=== PATIENT | male | born 1935 | race Caucasian/White ===

== ENCOUNTER 2018-05-03 10:27 | Inpatient (IN) ==
[2018-05-03] MEDS ORDERED: Morphine Inj 4 MG/ML Vial IV.PUSH ONE ×2 (10:32→11:28)
--- NOTE | 2018-05-03 10:40 | ED ---
HPI General Chief Complaint: Fall Stated Complaint: Medical Time Seen by Provider: 05/03/18 10:30 Source: patient and EMS Mode of arrival: EMS Limitations: no limitations History of Present Illness HPI Narrative: 82 Yo M with PMH of COPD, left knee replacement and revision presents to the ED for evaluation of left knee pain and swelling. Pain is rated 8/10, worsened by attempted weight bearing. No alleviating factors reported. Onset last night when the patient states "the leg gave out on me." He's not sure if he tripped. He denies dizziness. He states that he fell to the tile in the kitchen. He denies striking his head or LOC. He states that he has been unable to ambulate independently since the fall. He has used a walker and wheelchair for mobility. He takes aspirin daily, denies blood thinner use. He treated at home with Aleve last night with no improvement of symptoms. He states that he drank a little juice early this morning. Related Data Allergies Allergy/AdvReac Type Severity Reaction Status Date / Time tramadol Allergy Unknown RASH, Verified 05/03/18 10:28 ITCHINESS Review of Systems ROS: all other systems reviewed are negative [facility] Medical History Medical History COPD (chronic obstructive pulmonary disease) (Acute) Social History Social History Substance History: No History of Abuse Second Hand Smoke Exposure: No Smoking Status: Former smoker Tobacco Type: Cigarettes How Often Do You Have a Drink Containing Alcohol: 2 to 4 times a month Recent Travel in [facility] within the Last 8 Weeks: No Recent Out of Country Travel within the Last 8 Weeks: No Exam Narrative Exam Narrative: GENERAL: Well nourished, well developed white male in [facility]. SKIN: Focused skin assessment warm/dry. HEAD: Atraumatic. Normocephalic. EYES: Pupils equal and round. No scleral icterus. No injection or drainage. ENT: No nasal bleeding or discharge. Mucous membranes pink and moist. NECK: Trachea midline. No JVD. CARDIOVASCULAR: Regular rate and rhythm. No murmur appreciated. RESPIRATORY: No accessory muscle use. Clear to auscultation. Breath sounds equal bilaterally. GASTROINTESTINAL: Abdomen soft, non-tender, nondistended. Hepatic and splenic margins not palpable. MUSCULOSKELETAL: No obvious deformities. No clubbing. No cyanosis. No edema. FOCUSED LEFT LOWER EXTREMITY EXAM: 2+ DP pulse. The leg is held in external rotation. No pain with internal/external rotation. No TTP of the anterolateral hip. There is a large hematoma of the inner thigh. There is edema and ecchymosis of the knee. + patellar balloting. The patient is able to flex to ~ 35 degrees and extend to near 0 degrees. Neurovascularly intact distally. NEUROLOGICAL: Awake and alert. No obvious cranial nerve deficits. Motor grossly within normal limits. Normal speech. PSYCHIATRIC: Appropriate mood and affect; insight and judgment normal. Course Initial Documented Vital Signs Temperature 99.4 F 05/03/18 10:29 Pulse Rate 79 05/03/18 10:29 Respiratory Rate 18 05/03/18 10:29 Blood Pressure 132/95 H 05/03/18 10:29 Pulse Oximetry 100 05/03/18 10:29 Last Documented Vital Signs Temperature 99.4 F 05/03/18 10:29 Pulse Rate 79 05/03/18 10:29 Respiratory Rate 16 05/03/18 11:36 Blood Pressure 132/95 H 05/03/18 10:29 Pulse Oximetry 100 05/03/18 10:29 Medical Decision Making SUYAPA Attestation SUYAPA supervised visit: Yes Attestation: I, Dr. De La Torre, have reviewed the advance practice practitioner's documentation and am in agreement, met with the patient face to face, made the diagnosis, and the medical decision making was done by me. *My assessment and Findings: Patient is an 82-year-old male who presents with complaint of left leg pain after a fall yesterday. He did not hit his head nor lose consciousness. He is not entirely sure what caused the fall but believes he missed stepped. He has been trying to walk with his walker since the fall but has had severe difficulty secondary to pain in his left leg. Exam reveals large bruising and hematoma to the left thigh. He is neurovascularly intact. X -ray does show spiral femur fracture to the shaft in between his prostheses. He was placed in a knee immobilizer. Dr Persaud is his orthopedic surgeon and has been called. Dr Alfaro was on-call for the group and stated that the patient would need clearance for surgery (possibly today but likely tomorrow). I spoke with Dr Ybarra, hospitalist whom agreed to admission and was made aware of the need for clearance. MDM Narrative Medical decision making narrative: 82-year-old male with PMH of COPD presents the ED via EMS for evaluation of left leg pain after a fall night. Vitals reviewed. Exam suspicious for femur fracture. X-rays reveal intertrochanteric fracture around existing hardware and distal spiral fracture of the femur with total knee replacement noted. The patient request orthopedic consult by Dr. Persaud. Dr. De La Torre spoke with Dr. Mae who requests medical clearance, plans surgery likely tomorrow. We spoke with Dr. Ybarra who agrees to accept the patient to the medicine service. Please see orthopedic medicine notes for disposition. Medical Screen Exam Complete: Yes Emergency Medical Condition: Yes Differential Diagnosis Differential Diagnosis: fall versus contusion versus traumatic effusion versus hematoma versus muscle tear versus fracture versus other Lab Data Result diagrams: 05/03/18 10:45 05/03/18 10:45 Lab Results 05/03/18 05/03/18 05/03/18 Range/Units 10:45 10:45 11:17 WBC 16.0 H (4.0-11.0) th/mm3 RBC 2.92 L (4.50-5.90) mil/mm3 Hgb 10.8 L (13.0-17.0) gm/dL Hct 31.9 L (39.0-51.0) % MCV 109.0 H (80.0-100.0) fL MCH 36.9 H (27.0-34.0) pg MCHC 33.8 (32.0-36.0) % RDW 13.8 (11.6-17.2) % Plt Count 150 (150-450) th/mm3 MPV 9.5 (7.0-11.0) fL Neut % (Auto) 86.0 H (16.0-70.0) % Lymph % (Auto) 2.9 L (9.0-44.0) % [place] % (Auto) 10.6 H (0.0-8.0) % Eos % (Auto) 0.0 (0.0-4.0) % Baso % (Auto) 0.5 (0.0-2.0) % Neut # (Auto) 13.8 H (1.8-7.7) th/mm3 Lymph # (Auto) 0.5 L (1.0-4.8) th/mm3 [place] # (Auto) 1.7 H (0.0-0.9) th/mm3 Eos # (Auto) 0.0 (0.0-0.4) th/mm3 Baso # (Auto) 0.1 (0.0-0.2) th/mm3 WBC Differential . Differential Comment Auto diff final PT 10.0 (9.8-11.6) sec INR 1.0 Ratio APTT 21.5 L (23.4-31.7) sec Sodium 143 (136-145) meq/L Potassium 5.4 H (3.5-5.1) meq/L Chloride 110 H (98-107) meq/L Carbon Dioxide 20.2 L (21.0-32.0) meq/L Anion Gap 13 (5-15) meq/L BUN 38 H (7-18) mg/dL Creatinine 2.53 H (0.60-1.30) mg/dL Estimated GFR 25 L (>89) mL/min Random Glucose 134 H (74-106) mg/dL Calcium 7.4 L* (8.5-10.1) mg/dL Calcium Adj for Albumin 8.2 L (8.5-10.1) mg/dL Albumin 3.0 L (3.4-5.0) g/dL Imaging Data Radiologist's impression: Femur X-Ray 05/03/18 10:30 CONCLUSION: Intertrochanteric fracture about the prosthesis. Donal Murray MD FACR : Knee X-Ray 05/03/18 10:30 CONCLUSION: Fracture distal femur incompletely evaluated. Complete series of the femur suggested. Chest X-Ray 05/03/18 11:22 CONCLUSION: Moderate compensated cardiomegaly Discharge Plan Discharge Disposition Patient Disposition: ED Admit(ED Internal Use Only) Discharge Order Discharge Orders: ED Use Only Admit Order (Routine); Ordered 05/03/18 Ordered By: Jazzy De La Torre Physicians Team ED Provider: Jazzy De La Torre ED Midlevel Provider: Kirstin Fernandez Primary Care Provider: UNKNOWN, Attending Provider: Chayito Ybarra Other Providers: Nick Briggs Status ED Status: Admitted Patient
[2018-05-03 11:08] LABS: Baso # (Auto) 0.1 th/mm3 (0.0-0.2); Baso % (Auto) 0.5 % (0.0-2.0); Hematocrit 31.9 % (39.0-51.0); Hemoglobin 10.8 gm/dL (13.0-17.0); Lymph # (Auto) 0.5 th/mm3 (1.0-4.8); Lymph % (Auto) 2.9 % (9.0-44.0); Mean Corpuscular HGB Conc 33.8 % (32.0-36.0); Mean Corpuscular Hemoglobin 36.9 pg (27.0-34.0); Mean Platelet Volume 9.5 fL (7.0-11.0); Mono # (Auto) 1.7 th/mm3 (0.0-0.9); Mono % (Auto) 10.6 % (0.0-8.0); Neut # (Auto) 13.8 th/mm3 (1.8-7.7); Platelet Count 150 th/mm3 (150-450); Red Blood Count 2.92 mil/mm3 (4.50-5.90); Red Cell Distribution Width 13.8 % (11.6-17.2)
--- NOTE | 2018-05-03 11:24 | XR ---
EXAM DATE: 05/03/2018 11:15 AM EST AGE/SEX: 82 years / Male INDICATIONS: Left leg pain, fall. CLINICAL DATA: This is the patient's initial encounter. Patient reports that signs and symptoms have been present for 2 days and indicates a pain score of 7/10. MEDICAL/SURGICAL HISTORY: None. Total knee replacement, left. Bilateral hip replacements. COMPARISON: [facility], HIP LEFT AP ONLY WO AP PELVIS, 03/09/2015. . FINDINGS: The patient is status post a total hip arthroplasty. Prosthesis is well-seated. There is a fracture o f the lesser trochanter. This is associated with heterotopic bone. CONCLUSION: Intertrochanteric fracture about the prosthesis. Donal Murray MD FACR : Electronically signed by: Donal Murray MD 05/03/2018 11:23 AM EST
--- NOTE | 2018-05-03 11:25 | XR ---
EXAM DATE: 05/03/2018 11:17 AM EST AGE/SEX: 82 years / Male INDICATIONS: Left knee pain, fall. CLINICAL DATA: This is the patient's initial encounter. Patient reports that signs and symptoms have been present for 2 days and indicates a pain score of 7/10. MEDICAL/SURGICAL HISTORY: None. Total knee replacement, left. Bilateral hip replacements. COMPARISON: [facility] [place], FEMUR LEFT 2V, 05/03/2018. . FINDINGS: There is a fracture distal femur above the prosthesis incompletely evaluated on this exam. Femur film s suggested. CONCLUSION: Fracture distal femur incompletely evaluated. Complete series of the femur suggested. Electronically signed by: Donal Murray MD 05/03/2018 11:24 AM EST
[2018-05-03] MEDS ORDERED: Sod Chloride 0.9% Inj 1,000 ML IV.CONT SCH (11:30)
[2018-05-03 11:39] LABS: Calcium 7.4 mg/dL (8.5-10.1); Carbon Dioxide 20.2 meq/L (21.0-32.0); Potassium 5.4 meq/L (3.5-5.1)
[2018-05-03] MEDS ORDERED: Sod Chloride 0.9% Inj 1,000 ML IV.SIG ONE (11:53)
[2018-05-03 11:54] LABS: Calcium-Albumin Corrected 8.2 mg/dL (8.5-10.1)
--- NOTE | 2018-05-03 12:13 | XR ---
EXAM DATE: 05/03/2018 12:10 PM EST AGE/SEX: 82 years / Male INDICATIONS: Shortness of breath. CLINICAL DATA: This is the patient's initial encounter. Patient reports that signs and symptoms have been present for 1 day and indicates a pain score of 0/10. MEDICAL/SURGICAL HISTORY: Chronic obstructive pulmonary disease. . Total knee replacement, left . Bilateral hip replacements. COMPARISON: . FINDINGS: The heart is enlarged. Poor vascularity is normal. There is no other consolidation, pleural effusion or pneumothorax. Portable skeleton visualized is unremarkable. CONCLUSION: Moderate compensated cardiomegaly Electronically signed by: Donal Murray MD 05/03/2018 12:12 PM EST
[2018-05-03 12:23] LABS: Activated Partial Thrombo Time 21.5 sec (23.4-31.7)
[2018-05-03] MEDS ORDERED: Bisacodyl 10 MG Supp RECTAL PRN (12:23)
[2018-05-03] MEDS ORDERED: Morphine Inj 4 MG/ML Vial IV.PUSH PRN (12:23)
[2018-05-03] MEDS ORDERED: Naloxone Inj 0.4 MG/ML Vial IV.PUSH PRN (12:23)
[2018-05-03] MEDS ORDERED: Morphine Sulfate Inj 2 MG/ML Vial IV.PUSH PRN (12:23)
[2018-05-03] MEDS ORDERED: Acetaminophen 325 MG Tablet PO PRN ×2 (12:23)
--- NOTE | 2018-05-03 16:22 | P.HPIM ---
History of Present Illness Primary Care Physician: UNKNOWN Chief Complaint: Left leg pain after a fall History of Present Illness: 82-year-old white male with a history of COPD, sleep apnea presents to the emergency room with left upper leg pain since he tripped on tile yesterday in the kitchen despite taking [id number] ibuprofen. Due to the persistent pain and difficulty ambulating he came to the emergency room for evaluation. He denies loss of consciousness after the fall. Of note patient has a history of bilateral hip replacement with left hip arthroplasty revision about a year ago with Dr. Nick Briggs. He also has a right knee replacement. He is currently ambulating independently without assistance of a walker at home. He is not aware if he has a history of chronic kidney disease but reports that he had left nephrectomy done in the past due to renal cancer. He is currently not complain any chest pain or shortness of breath. Inpatient Certification Inpatient Certification: I certify that the inpatient services were ordered in accordance with Medicare regulations governing the order. This includes certification that hospital inpatient services are reasonable and necessary and in the case of services not specified as inpatient-only under 42 CFR 419.22(n), that they are appropriately provided as inpatient services in accordance to with the 2-midnight benchmark under 43 CFR 412.3(e) Estimated Total Length of Stay (Days): 4 Plans for Post Hospital Care: Not yet determined Review of Systems Constitutional: Reports as per HPI, Denies chills, Denies fatigue, Denies fever( s), Denies frequent falls and Denies headache(s) Eyes: Denies blurry vision, Denies change in vision and Denies eye pain Ears, Nose, Mouth, and Throat: Denies abnormal hearing, Denies headache(s), Denies mouth pain, Denies nasal congestion, Denies neck pain and Denies sore throat Cardiovascular: Denies chest pain, Denies pedal edema, Denies palpitations and Denies dyspnea Respiratory: Denies cough and Denies dyspnea Gastrointestinal: Denies abdominal pain, Denies constipation, Denies loose stools, Denies nausea and Denies vomiting Musculoskeletal: Denies back pain and Denies arthralgias Comments: Left upper leg pain as described in HPI Skin/Breast: Denies new lesions and Denies rash Neurologic: Denies abnormal hearing, Denies headache(s), Denies focal weakness, Denies memory loss and Denies numbness Psychiatric: Denies anxiety, Denies depression and Denies memory loss Endocrine: Denies cold intolerance, Denies heat intolerance and Denies palpitations Hematologic/Lymphatic: Denies easy bleeding and Denies easy bruising PMFSH Social History Social History Substance History: No History of Abuse Second Hand Smoke Exposure: No Smoking Status: Former smoker Tobacco Type: Cigarettes How Often Do You Have a Drink Containing Alcohol: 2 to 4 times a month Recent Travel in [facility] within the Last 8 Weeks: No Recent Out of Country Travel within the Last 8 Weeks: No Immunization History Tetanus Immunization: <5 Years Medications and Allergies Allergies Allergy/AdvReac Type Severity Reaction Status Date / Time tramadol Allergy Unknown RASH, Verified 05/03/18 10:28 ITCHINESS Home Medications Medication Instructions Recorded Confirmed Type albuterol sulfate 2.5 mg INHALATION Q20M PRN 05/03/18 05/03/18 History albuterol sulfate [Ventolin HFA] 05/03/18 History allopurinol 100 mg PO DAILY PRN 05/03/18 05/03/18 History aspirin [Aspir-81] 05/03/18 History duloxetine 60 mg PO DAILY 05/03/18 05/03/18 History finasteride 5 mg PO DAILY 05/03/18 05/03/18 History fluticasone-salmeterol [Advair 1 inh INHALATION BID 05/03/18 05/03/18 History Diskus] primidone 50 mg PO DAILY 05/03/18 05/03/18 History trazodone 50 mg PO HS PRN 05/03/18 05/03/18 History Active Medications: Active Medications Acetaminophen (Tylenol) 650 mg PO Q4H PRN PRN Reason: Temp > 100.4 Acetaminophen (Tylenol) 650 mg PO Q6H PRN PRN Reason: PAIN SCALE 1 TO 2 Hydrocodone Bitart/Acetaminophen ([place] 5/325) 1 tab PO Q4H PRN PRN Reason: PAIN SCALE 3 TO 5 Hydrocodone Bitart/Acetaminophen ([place] 7.5/325) 1 tab PO Q4H PRN PRN Reason: PAIN SCALE 6 TO 10 Al Hydroxide/Mg Hydroxide (Milk Of Magnesia Liq) 30 ml PO Q12H PRN PRN Reason: Mild Constipation Bisacodyl (Dulcolax Supp) 10 mg RECTAL DAILY PRN PRN Reason: SEVERE CONSITIPATION Sodium Chloride (Ns Inj) 1,000 mls @ 75 mls/hr IV.CONT .[id number] KAE Lactulose (Lactulose Liq) 30 ml PO DAILY PRN PRN Reason: SEVERE CONSITIPATION Morphine Sulfate (Morphine Inj) 2 mg IV.PUSH Q3H PRN PRN Reason: PAIN 3-5; IF UABLE TO TAKE PO Morphine Sulfate (Morphine Inj) 4 mg IV.PUSH Q3H PRN PRN Reason: PAIN 6-10;IF UNABLE TO TAKE PO Naloxone HCl (Narcan Inj) 0.4 mg IV.PUSH UNSCH PRN PRN Reason: SEE LABEL COMMENTS Ondansetron HCl (Zofran Inj) 4 mg IV.PUSH Q6H PRN PRN Reason: NAUSEA OR VOMITING Senna/Docusate Sodium (Griselda-Colace) 1 tab PO BID [facility] Sennosides (Senokot) 17.2 mg PO Q12H PRN PRN Reason: Moderate Constipation Sodium Chloride (Ns Flush) 2 ml IV.FLUSH UNSCH PRN PRN Reason: FLUSH AFTER USING IV ACCESS Sodium Chloride (Ns Flush) 2 ml IV.FLUSH BID [facility] Physical Exam Vital signs: Last Vital Signs Temp 97.5 F L 05/03/18 16:00 Pulse 77 05/03/18 16:00 Resp 18 05/03/18 16:00 BP 112/55 L 05/03/18 16:00 Pulse Ox 97 05/03/18 16:00 Intake & Output 05/01/18 05/02/18 05/03/18 05/04/18 06:59 06:59 06:59 06:59 Weight 97.522 kg Narrative: GENERAL: Well-nourished well-developed white male in no acute distress SKIN: Warm and dry. HEAD: Atraumatic. Normocephalic. EYES: Pupils equal and round. No scleral icterus. No injection or drainage. ENT: No nasal bleeding or discharge. Mucous membranes pink and moist. NECK: Trachea midline. No JVD. CARDIOVASCULAR: Regular rate and rhythm. RESPIRATORY: No accessory muscle use. Diminished breath sounds bilaterally GASTROINTESTINAL: Abdomen soft, non-tender, nondistended. Hepatic and splenic margins not palpable. Midline surgical scar, normoactive bowel sounds MUSCULOSKELETAL: Left lower extremity with external rotation and abduction, knee immobilizer in place NEUROLOGICAL: Awake and alert to person place time. No obvious cranial nerve deficits. Motor grossly within normal limits. Five out of 5 muscle strength in the bilateral arms and right lower legs. Normal speech. PSYCHIATRIC: Appropriate mood and affect; insight and judgment normal. Results Labs CBC & Chem 7: 05/07/18 04:23 05/07/18 04:26 Imaging Impressions Femur X-Ray 05/03/18 10:30 CONCLUSION: Intertrochanteric fracture about the prosthesis. Donal Murray MD FACR : Knee X-Ray 05/03/18 10:30 CONCLUSION: Fracture distal femur incompletely evaluated. Complete series of the femur suggested. Chest X-Ray 05/03/18 11:22 CONCLUSION: Moderate compensated cardiomegaly Caprini VTE Risk Assessment Caprini VTE Risk Assessment: Moderate/High Risk (score >= 2) Caprini Risk Assessment Model: Point Value = 1 Point Value = 2 Point Value = 3 Point Value = 5 Age 41-60 Minor surgery BMI > 25 kg/m2 Swollen legs Varicose veins or History of unexplained or recurrent spontaneous Oral contraceptives or hormone replacement Sepsis (< 1 month) Serious lung disease, including pneumonia (< 1 month) Abnormal pulmonary function Acute myocardial infarction Congestive heart failure (< 1 month) History of inflammatory bowel disease Medical patient at bed rest Age 61-74 Arthroscopic surgery Major open surgery (> 45 min) Laparoscopic surgery (> 45 min) Malignancy Confined to bed (> 72 hours) Immobilizing plaster cast Central venous access Age >= 75 History of VTE Family history of VTE Factor V Leiden Prothrombin [id number] Lupus anticoagulant Anticardiolipin antibodies Elevated serum homocysteine Heparin-induced thrombocytopenia Other congenital or acquired thrombophilia Stroke (< 1 month) Elective arthroplasty Hip, pelvis, or leg fracture Acute spinal cord injury (< 1 month) Prophylaxis Regimen: Total Risk Factor Score Risk Level Prophylaxis Regimen 0-1 Low Early ambulation 2 Moderate Order ONE of the following: *Sequential Compression Device (SCD) *Heparin 5000 units SQ BID 3-4 Higher Order ONE of the following medications: *Heparin 5000 units SQ TID *Enoxaparin/Lovenox 40 mg SQ daily (WT < 150 kg, CrCl > 30 mL/min) *Enoxaparin/Lovenox 30 mg SQ daily (WT < 150 kg, CrCl > 10-29 mL/min) *Enoxaparin/Lovenox 30 mg SQ BID (WT < 150 kg, CrCl > 30 mL/min) AND/OR *Sequential Compression Device (SCD) 5 or more Highest Order ONE of the following medications: *Heparin 5000 units SQ TID (Preferred with Epidurals) *Enoxaparin/Lovenox 40 mg SQ daily (WT < 150 kg, CrCl > 30 mL/min) *Enoxaparin/Lovenox 30 mg SQ daily (WT < 150 kg, CrCl > 10-29 mL/min) *Enoxaparin/Lovenox 30 mg SQ BID (WT < 150 kg, CrCl > 30 mL/min) AND *Sequential Compression Device (SCD) Assessment and Plan Plan 83-year-old white male with a history of COPD, sleep apnea presents with left leg pain after he sustained a fall yesterday Left hip intertrochanteric fracture with distal femoral fracture above the prosthesis -continue pain control, consult orthopedic surgery for evaluation for surgical intervention. History of COPDcurrently not acute exacerbation continue with inhaler, DuoNeb as needed for any shortness of breath History of sleep apneacontinue with CPAP Acute kidney injury superimposed on likely chronic kidney disease stage III as patient had GFR 54 in February 2015 -this is likely attributed to the fall, IV fluid hydration and monitor. Avoid nephrotoxins. Hypokalemiano potassium supplements and monitor closely, if continues to be elevated will give Kayexalate. History of essential tremor continue with home primidone Leukocytosis likely due to stress reaction, check screening urinalysis Anemia likely due to chronic kidney disease, monitor hemoglobin postoperatively DVT prophylaxisSCD to RLE, hold anticoagulation for pending surgery
[2018-05-03] MEDS ORDERED: traZODone 50 MG Tablet PO PRN (16:28)
[2018-05-03] MEDS: Sod Chloride 0.9% Inj 1,000 ML IV.CONT SCH (18:41)
[2018-05-03] MEDS: Senna/Docusate Sodium 8.6/50 MG Tablet PO SCH (19:59)
--- NOTE | 2018-05-03 20:01 | P.CONOP ---
[facility] Orthopedics Consult Note - [facility] Consult date: 05/03/18 Consult reason: fracture Chief complaint: Femur FX Narrative: Cath patient is a 82-year-old male who is previously undergone revision left total hip arthroplasty and revision left total knee arthroplasty. He sustained a fall today. He does not know exactly what happened. He was brought to [facility]. He was found to have a highly comminuted supracondylar distal femoral shaft fracture above his total knee and below his total hip. He was admitted to the medical service with consultation placed with the undersigned. He specifically denies other injury. Review of Systems Patient denies problems head ears eyes nose throat heart lungs gastrointestinal tract liver kidney psychiatric and genitourinary system. [facility] - History History Provided By: Patient - Medical History Medical History: Medical History (Last Reviewed 05/03/18 @ 19:58 by Feroz Alfaro MD) COPD (chronic obstructive pulmonary disease) Essential tremor Gout Sleep apnea Renal cancer Renal cancer - Surgical History Surgical History: Surgical History (Last Reviewed 05/03/18 @ 19:58 by Feroz Alfaro MD) History of bilateral hip replacements History of nephrectomy, unilateral History of right knee joint replacement - Family History Family History: Family History (Last Reviewed 05/03/18 @ 19:58 by Feroz Alfaro MD) Father Bone cancer - Tobacco History Second Hand Smoke Exposure: No Tobacco Use In Past 30 Days: No Smoking Status: Former smoker Tobacco Type: Cigarettes - Alcohol History How Often Do You Have a Drink Containing Alcohol: 2 to 4 times a month - Substance Use History Substance History: No History of Abuse - Travel History Recent Travel in the [place] Within the Last 8 Weeks: No Recent Travel Out of the Country Within the Last 8 Weeks: No - Immunization History Tetanus Immunization: <5 Years Hx Influenza Vaccine This Season: Yes Medications and Allergies Active Medications: Active Medications Acetaminophen (Tylenol) 650 mg PO Q4H PRN PRN Reason: Temp > 100.4 Acetaminophen (Tylenol) 650 mg PO Q6H PRN PRN Reason: PAIN SCALE 1 TO 2 Hydrocodone Bitart/Acetaminophen ([place] 5/325) 1 tab PO Q4H PRN PRN Reason: PAIN SCALE 3 TO 5 Hydrocodone Bitart/Acetaminophen ([place] 7.5/325) 1 tab PO Q4H PRN PRN Reason: PAIN SCALE 6 TO 10 Al Hydroxide/Mg Hydroxide (Milk Of Magnesia Liq) 30 ml PO Q12H PRN PRN Reason: Mild Constipation Albuterol (Duoneb Neb (Prn)) 1 ampul NEB Q2HR NEB PRN PRN Reason: SHORTNESS OF BREATH Bisacodyl (Dulcolax Supp) 10 mg RECTAL DAILY PRN PRN Reason: SEVERE CONSITIPATION Budesonide/Formoterol Fumarate (Symbicort 160/4.5 Mcg Inh) 2 puff INH BID [facility] Duloxetine HCl (Cymbalta) 60 mg PO DAILY [facility] Finasteride (Proscar) 5 mg PO DAILY [facility] Sodium Chloride (Ns Inj) 1,000 mls @ 75 mls/hr IV.CONT .[id number] [facility] Last Admin: 05/03/18 18:41 Dose: 75 mls/hr Lactulose (Lactulose Liq) 30 ml PO DAILY PRN PRN Reason: SEVERE CONSITIPATION Morphine Sulfate (Morphine Inj) 2 mg IV.PUSH Q3H PRN PRN Reason: PAIN 3-5; IF UABLE TO TAKE PO Morphine Sulfate (Morphine Inj) 4 mg IV.PUSH Q3H PRN PRN Reason: PAIN 6-10;IF UNABLE TO TAKE PO Naloxone HCl (Narcan Inj) 0.4 mg IV.PUSH UNSCH PRN PRN Reason: SEE LABEL COMMENTS Ondansetron HCl (Zofran Inj) 4 mg IV.PUSH Q6H PRN PRN Reason: NAUSEA OR VOMITING Primidone (Mysoline) 50 mg PO DAILY [facility] Senna/Docusate Sodium (Griselda-Colace) 1 tab PO BID [facility] Sennosides (Senokot) 17.2 mg PO Q12H PRN PRN Reason: Moderate Constipation Sodium Chloride (Ns Flush) 2 ml IV.FLUSH UNSCH PRN PRN Reason: FLUSH AFTER USING IV ACCESS Sodium Chloride (Ns Flush) 2 ml IV.FLUSH BID [facility] Trazodone HCl (Desyrel) 50 mg PO HS PRN PRN Reason: Insomnia Allergies Allergy/AdvReac Type Severity Reaction Status Date / Time tramadol Allergy Unknown RASH, Verified 05/03/18 10:28 ITCHINESS Home Medications Medication Instructions Recorded Confirmed Type albuterol sulfate 2.5 mg INHALATION Q20M PRN 05/03/18 05/03/18 History albuterol sulfate [Ventolin HFA] 05/03/18 History allopurinol 100 mg PO DAILY PRN 05/03/18 05/03/18 History aspirin [Aspir-81] 05/03/18 History duloxetine 60 mg PO DAILY 05/03/18 05/03/18 History finasteride 5 mg PO DAILY 05/03/18 05/03/18 History fluticasone-salmeterol [Advair 1 inh INHALATION BID 05/03/18 05/03/18 History Diskus] primidone 50 mg PO DAILY 05/03/18 05/03/18 History trazodone 50 mg PO HS PRN 05/03/18 05/03/18 History Exam Vital signs: Vital Signs 05/03/18 10:29 05/03/18 11:36 05/03/18 16:00 Temperature 99.4 F 97.5 F L Pulse Rate 79 77 Respiratory Rate 18 16 18 Blood Pressure 132/95 H 112/55 L Pulse Oximetry 100 97 Intake & Output 05/03/18 05/03/18 05/04/18 06:59 18:59 06:59 Intake Total 0 / 0 Balance 0 / 0 Weight 97.5 kg Intake: Oral 0 / 0 Other: # Voids 0 Date of Last Bowel Movement 05/02/18 # Bowel Movements 0 Weight On Admission 97.5 kg - Constitutional mild distress - Routine HEENT Exam Head: Present: normocephalic, atraumatic Eye: Present: EOMI, PERRL (Right lower extremity examination benignLeft lower extremity shows marked swelling of the left thigh. He has tenderness to palpation. Motion of the hips and knees not performed. Calves are soft. Distal pulses are 2+. Distal versus neurologic examination intact. Skin is intact.) Results - Labs Result Diagrams: 05/03/18 10:45 05/03/18 10:45 Labs: Laboratory Results - last 24 hr 05/03/18 05/03/18 05/03/18 10:45 10:45 11:17 WBC 16.0 H RBC 2.92 L Hgb 10.8 L Hct 31.9 L MCV 109.0 H MCH 36.9 H MCHC 33.8 RDW 13.8 Plt Count 150 MPV 9.5 Neut % (Auto) 86.0 H Lymph % (Auto) 2.9 L [place] % (Auto) 10.6 H Eos % (Auto) 0.0 Baso % (Auto) 0.5 Neut # (Auto) 13.8 H Lymph # (Auto) 0.5 L [place] # (Auto) 1.7 H Eos # (Auto) 0.0 Baso # (Auto) 0.1 WBC Differential . Differential Comment Auto diff final PT 10.0 INR 1.0 APTT 21.5 L Sodium 143 Potassium 5.4 H Chloride 110 H Carbon Dioxide 20.2 L Anion Gap 13 BUN 38 H Creatinine 2.53 H Estimated GFR 25 L Random Glucose 134 H Calcium 7.4 L* Calcium Adj for Albumin 8.2 L Albumin 3.0 L - Diagnostic results Imaging: Impressions Femur X-Ray 05/03/18 10:30 CONCLUSION: Intertrochanteric fracture about the prosthesis. Donal Murray MD FACR : Knee X-Ray 05/03/18 10:30 CONCLUSION: Fracture distal femur incompletely evaluated. Complete series of the femur suggested. Chest X-Ray 05/03/18 11:22 CONCLUSION: Moderate compensated cardiomegaly Assessment and Plan - Problem List (1) Fracture of femoral shaft, left, closed Code(s): S72.302A - Unspecified fracture of shaft of left femur, initial encounter for closed fracture Status: Acute Qualifiers: Encounter type: initial encounter Fracture morphology: oblique Fracture alignment: displaced Qualified Code(s): S72.332A - Displaced oblique fracture of shaft of left femur, initial encounter for closed fracture - Assessment and Plan His condition was discussed and the options of treatment were discussed. The recommendation is open reduction internal fixation. Surgical technique described. The inherent risks of surgery including the risk of infection, nerve damage, blood vessel damage, anesthetic complication, medical complication, and unforeseen possible complications were all discussed all of his questions were answered he was present with surgery detailed informed consent was obtained. A mid-level provider my office nurse practitioner ALE may see this patient on follow-up basis and continue to implement the plan of care.
[2018-05-04] MEDS: Budesonide-Formoterol 160/4.5 MCG 6 GM Inhaler INH SCH ×3 (04:00→21:36)
[2018-05-04] MEDS ORDERED: Chlorhexidine Gluconate 2% 1 Pack (2 Cloths) TOPICAL ONE (04:15)
[2018-05-04] MEDS ORDERED: Sodium Chlor 0.9% Inj 500 ML IV.CONT ONE (04:15)
[2018-05-04 06:10] LABS: Baso # (Auto) 0.1 th/mm3 (0.0-0.2); Baso % (Auto) 0.7 % (0.0-2.0); Eos # (Auto) 0.1 th/mm3 (0.0-0.4); Eos % (Auto) 1.6 % (0.0-4.0); Hematocrit 23.5 % (39.0-51.0); Hemoglobin 8.1 gm/dL (13.0-17.0); Lymph % (Auto) 13.1 % (9.0-44.0); Mean Corpuscular HGB Conc 34.5 % (32.0-36.0); Mean Corpuscular Hemoglobin 37.7 pg (27.0-34.0); Mean Corpuscular Volume 109.3 fL (80.0-100.0); Mean Platelet Volume 9.4 fL (7.0-11.0); Mono # (Auto) 1.3 th/mm3 (0.0-0.9); Mono % (Auto) 16.6 % (0.0-8.0); Neut # (Auto) 5.4 th/mm3 (1.8-7.7); Platelet Count 97 th/mm3 (150-450); Red Blood Count 2.15 mil/mm3 (4.50-5.90); White Blood Count 7.9 th/mm3 (4.0-11.0)
[2018-05-04 06:29] LABS: Calcium 7.6 mg/dL (8.5-10.1); Carbon Dioxide 23.2 meq/L (21.0-32.0); Potassium 5.1 meq/L (3.5-5.1)
[2018-05-04] MEDS ORDERED: ceFAZolin 1 GM Premix Inj 2 GM/100 ML PIGGYBACK IV.SIG ONE (07:48)
[2018-05-04] MEDS ORDERED: Heparin 10,000 UNITS/10 ML Vial (for IV use) ONE (08:51)
[2018-05-04 09:56] LABS: Dimorphic RBC Present; Platelet Morphology Normal (Normal)
[2018-05-04] MEDS: Duloxetine 60 MG DR Capsule PO SCH (10:04)
[2018-05-04] MEDS: Primidone 50 MG Tablet PO SCH (10:04)
[2018-05-04] MEDS: Finasteride 5 MG Tablet PO SCH (10:04)
[2018-05-04] MEDS: Senna/Docusate Sodium 8.6/50 MG Tablet PO SCH ×2 (10:04→21:36)
[2018-05-04] MEDS ORDERED: Post-op Orders (for Pharmacy) OTHER STA ×3 (10:53→10:59)
--- NOTE | 2018-05-04 11:20 | P.OP ---
- Preoperative Diagnosis (1) Fracture of femoral shaft, left, closed - Postoperative Diagnosis (1) Fracture of femoral shaft, left, closed Date of procedure: 05/04/18 Procedure: Left femur open reduction and internal fixation of supracondylar and shaft fracture above total knee replacement and below total hip replacement Implants: Synthes Anesthesia: GETA Surgeon: Feroz Alfaro MD Water Project Manager: Wilson Connors Estimated blood loss (mL): 1,000 Operation and Findings: The patient was brought to the operating room placed under general anesthesia. The left lower extremity is prepped and draped in usual sterile fashion with the patient set up on a Steele table. IV antibiotics were given. Timeout was completed. A long lateral incision and alignment with the iliotibial band was made meticulous hemostasis of the skin and subcutaneous tissue and the fascia was split. The vastus lateralis lateralis was elevated off of the fascia and the bone exposed proximally to the level of the total hip replacement. A clip suture winder hand was used proximally for perforating vessels. The scar tissue about the lateral aspect of the knee was resected. Fracture fragments were aligned a long Synthes specially locking lateral plate was chosen. This plate had a curvature in it that curved as the femur curved and was long enough so that it went to the level of the total hip. We used fluoroscopy to assess the reduction in the alignment and then proceeded to further reduce this with the use of multiple cables. The cables were provisionally tensioned and the bone aligned. We had our starter guidepin at the level of the knee and was parallel to the joint surface to allow for appropriate varus valgus alignment. We then proceeded to tension all of the cables and and then proceeded to place our distal cannulated locking screws and then midshaft screws. Final x-rays AP and lateral of the entire construct was obtained. The overall alignment looks good the varus valgus alignment look good and the lateral view showed good alignment of the knee prosthesis. At this point we irrigated out with copious amounts of irrigation. We proceeded to close with absorbable sutures and then lucina on the skin. Xeroform was applied. Sterile dressing applied. The patient was awoken and returned to recovery room in stable condition. The first coat operator is an advanced registered nurse practitioner. His skill set was medically necessary for the performance of the operation.
[2018-05-04] MEDS: Sod Chloride 0.9% Inj 1,000 ML IV.CONT SCH (12:00)
[2018-05-04] MEDS ORDERED: fentaNYL Citrate Inj 100 MCG/2 ML Ampul ONE (12:08)
[2018-05-04 12:09] LABS: Baso # (Auto) 0.1 th/mm3 (0.0-0.2); Baso % (Auto) 0.5 % (0.0-2.0); Eos # (Auto) 0.1 th/mm3 (0.0-0.4); Eos % (Auto) 1.2 % (0.0-4.0); Lymph # (Auto) 0.8 th/mm3 (1.0-4.8); Lymph % (Auto) 6.5 % (9.0-44.0); Mean Corpuscular Hemoglobin 37.1 pg (27.0-34.0); Mean Corpuscular Volume 112.3 fL (80.0-100.0); Mean Platelet Volume 9.4 fL (7.0-11.0); Mono # (Auto) 1.5 th/mm3 (0.0-0.9); Mono % (Auto) 12.3 % (0.0-8.0); Neut # (Auto) 9.9 th/mm3 (1.8-7.7); Neut % (Auto) 79.5 % (16.0-70.0); Platelet Count 120 th/mm3 (150-450); Red Blood Count 1.57 mil/mm3 (4.50-5.90); White Blood Count 12.4 th/mm3 (4.0-11.0)
--- NOTE | 2018-05-04 12:18 | XR ---
EXAM DATE: 05/04/2018 12:14 PM EST AGE/SEX: 82 years / Male INDICATIONS: Evaluate central line placement. CLINICAL DATA: This is the patient's initial encounter. Patient reports that signs and symptoms have been present for 1 day and indicates a pain score of 0/10. MEDICAL/SURGICAL HISTORY: Chronic obstructive pulmonary disease. None. COMPARISON: C, CHEST 1V SINGLE AP, 05/03/2018. . FINDINGS: 2 rotated and underinflated portable AP views of the chest demonstrate a normal-sized cardiac silhoue tte with calcification of the aorta. Left subclavian central line is present with distal tip overlyin g the superior aspect of the SVC. No pneumothorax is identified. There is mild bibasilar opacity. No pleural effusion is present. CONCLUSION: 1. Left subclavian central line distal tip likely in the superior aspect of the SVC. No pneumothorax is visualized. 2. Underinflated examination with mild bibasilar opacity most likely representing subsegmental atele ctasis. Electronically signed by: Saleem Aguilar MD 05/04/2018 12:17 PM EST
[2018-05-04 12:20] LABS: Hematocrit 17.6 % (39.0-51.0); Hemoglobin 5.8 gm/dL (13.0-17.0)
--- NOTE | 2018-05-04 13:29 | XR ---
EXAM DATE: 05/04/2018 1:13 PM EST AGE/SEX: 82 years / Male INDICATIONS: Left femoral plate and wires. CLINICAL DATA: This is the patient's initial encounter. Patient reports that signs and symptoms have been present for 1 day and indicates a pain score of Nonresponsive. MEDICAL/SURGICAL HISTORY: Chronic obstructive pulmonary disease. . Total knee replacement, left . Bilateral hip replacements. COMPARISON: [facility] [place], KNEE LIMITED LEFT 2V, 05/03/2018. . FINDINGS: 7 spot fluoroscopic images obtained in the operating room during a procedure demonstrates a lateral m id and distal femoral sideplate with multiple interlocking screws and cerclage wires. Partially visua lized femoral stem component is visualized and there is total knee arthroplasty hardware present. The re is overall improved alignment. CONCLUSION: Improved alignment following left femur ORIF. Electronically signed by: Saleem Aguilar MD 05/04/2018 1:28 PM EST
--- NOTE | 2018-05-04 13:49 | P.PNIM ---
Subjective Interval history: Follow up left hip intertrochanteric fracture with distal femoral fracture above prosthesis status post ORIF, symptomatic anemia, hypokalemia, IVETT Patient seen post-operatively. He complains of feeling very weak. Moderate left hip pain and nausea. No shortness of breath or chest discomfort. Physical Exam Vital signs: Last Vital Signs Temp 97.5 F L 05/04/18 12:30 Pulse 79 05/04/18 12:30 Resp 15 05/04/18 12:30 BP 119/56 L 05/04/18 12:30 Pulse Ox 100 05/04/18 12:30 Intake & Output 05/02/18 05/03/18 05/04/18 05/05/18 06:59 06:59 06:59 06:59 Intake Total 100 / 100 4300 / 4300 Output Total 0 / 0 1000 / 1000 Balance 100 / 100 3300 / 3300 Weight 96.1 kg Narrative: GENERAL: Well-nourished well-developed white male in no acute distress SKIN: Warm and dry. HEAD: Atraumatic. Normocephalic. EYES: Pupils equal and round. No scleral icterus. No injection or drainage. ENT: No nasal bleeding or discharge. Mucous membranes pink and moist. NECK: Trachea midline. No JVD. CARDIOVASCULAR: Regular rate and rhythm. RESPIRATORY: No accessory muscle use. Diminished breath sounds bilaterally GASTROINTESTINAL: Abdomen soft, non-tender, nondistended. Hepatic and splenic margins not palpable. Midline surgical scar, normoactive bowel sounds MUSCULOSKELETAL: Left hip dressing clean, dry and intact NEUROLOGICAL: Awake and alert to person place time. No obvious cranial nerve deficits. Motor grossly within normal limits. Five out of 5 muscle strength in the bilateral arms and right lower legs. Normal speech. PSYCHIATRIC: Appropriate mood and affect; insight and judgment normal. Results Labs CBC & Chem 7: 05/04/18 11:31 05/04/18 04:53 Imaging Imaging: Impressions Chest X-Ray 05/04/18 00:00 CONCLUSION: 1. Left subclavian central line distal tip likely in the superior aspect of the SVC. No pneumothorax is visualized. 2. Underinflated examination with mild bibasilar opacity most likely representing subsegmental atelectasis. Femur X-Ray 05/04/18 00:00 CONCLUSION: Improved alignment following left femur ORIF. Assessment and Plan (1) Fracture of femoral shaft, left, closed: Code(s): S72.302A - Unspecified fracture of shaft of left femur, initial encounter for closed fracture Status: Acute Plan 83-year-old white male with a history of COPD, sleep apnea presents with left leg pain after he sustained a fall yesterday Left hip intertrochanteric fracture with distal femoral fracture above prosthesis -Ortho consulted -s/p ORIF 05/04/18 -continue pain control -PT eval/treat Symptomatic anemia, acute blood loss -multifactorial, worse 2/2 acute blood loss post surgery -H/H 5.8/17.6 -transfuse PRBC's -repeat H/H post completion of transfusion Acute kidney injury superimposed on likely chronic kidney disease stage III as patient had GFR 54 in February 2015 - slightly worse today -likely attributed to the fall -continue IV fluid hydration and monitor -avoid nephrotoxins Leukocytosis, likely reactive 2/2 stress -repeat CBC in am History of COPD - chronic and stable -no acute exacerbation -continue with inhaler, DuoNeb as needed for any shortness of breath History of sleep apneacontinue with CPAP Hypokalemia - improved and WNL no potassium supplements and monitor closely History of essential tremor continue with home primidone MDM: self Code: Full GI ppx: PO intake DVT ppx: Lovenox SQ 05/05/18 Discussed Condition With: RN, patient Discharge Planning: likely SNF, pending PT evaluation and treatment Progress Note: Quality VTE Deep Vein Thrombosis/Pulmonary Embolism Present on Admission: No _ (1) Fracture of femoral shaft, left, closed Qualifiers: Encounter type: initial encounter Fracture alignment: displaced Fracture healing: Fracture morphology: oblique Qualified Code(s): S72.332A - Displaced oblique fracture of shaft of left femur, initial encounter for closed fracture
--- NOTE | 2018-05-04 20:47 | ECG ---
Date Performed: 05/04/2018 Time Performed: 05:34:02 PTAGE: 82 years EKG: Normal Sinus rhythm Borderline ECG NO PREVIOUS TRACING DOCTOR: Eduardo Jarrell Interpretating Date/Time 05/04/2018 20:45:31
[2018-05-05 00:41] LABS: Hematocrit 23.5 % (39.0-51.0); Hemoglobin 8.2 gm/dL (13.0-17.0)
[2018-05-05 06:25] LABS: Hematocrit 23.8 % (39.0-51.0); Hemoglobin 8.2 gm/dL (13.0-17.0)
[2018-05-05 06:32] LABS: Calcium 6.8 mg/dL (8.5-10.1); Potassium 5.4 meq/L (3.5-5.1)
[2018-05-05 06:44] LABS: Albumin 2.4 g/dL (3.4-5.0); Calcium-Albumin Corrected 8.1 mg/dL (8.5-10.1)
[2018-05-05] MEDS: Sod Chloride 0.9% Inj 1,000 ML IV.CONT SCH ×3 (07:47→19:00)
[2018-05-05] MEDS: Primidone 50 MG Tablet PO SCH (08:08)
[2018-05-05] MEDS: Duloxetine 60 MG DR Capsule PO SCH (08:08)
[2018-05-05] MEDS: Finasteride 5 MG Tablet PO SCH (08:09)
[2018-05-05] MEDS: Senna/Docusate Sodium 8.6/50 MG Tablet PO SCH ×2 (08:09→20:46)
[2018-05-05] MEDS: Budesonide-Formoterol 160/4.5 MCG 6 GM Inhaler INH SCH ×2 (08:10→20:46)
[2018-05-05] MEDS ORDERED: Sodium Polystyrene Sulfonate/Sorbitol Liq 15 GM/60 ML UDC PO ONE (08:12)
[2018-05-05] MEDS ORDERED: Enoxaparin Inj 40 MG/0.4 ML Syringe SQ SCH (11:00)
[2018-05-05] MEDS ORDERED: Benzocaine/Menthol 15 MG/3.6 MG SF Lozenge BUCCAL PRN (12:08)
--- NOTE | 2018-05-05 12:14 | P.PNIM ---
Subjective Interval history: Follow up left hip intertrochanteric fracture with distal femoral fracture above prosthesis status post ORIF, symptomatic anemia, hypokalemia, IVETT Patient seen and examined while resting in bed. His brother is at the bedside. Patient reports improved energy. No dizziness or lightheadedness. He states he sat up in a chair earlier and tolerated this well. No chest discomfort, shortness of breath, cough, fever or chills. Patient states he would like to speak to regarding rehab options. Physical Exam Vital signs: Last Vital Signs Temp 97.9 F 05/05/18 08:00 Pulse 81 05/05/18 08:00 Resp 18 05/05/18 08:00 BP 124/61 05/05/18 08:00 Pulse Ox 96 05/05/18 12:05 Intake & Output 05/03/18 05/04/18 05/05/18 05/06/18 06:59 06:59 06:59 06:59 Intake Total 100 / 100 5940 / 5940 Output Total 0 / 0 1200 / 1200 Balance 100 / 100 4740 / 4740 Weight 96.1 kg 102.5 kg Narrative: GENERAL: Well-nourished well-developed white male in no acute distress SKIN: Warm and dry. HEAD: Atraumatic. Normocephalic. EYES: Pupils equal and round. No scleral icterus. No injection or drainage. ENT: No nasal bleeding or discharge. Mucous membranes pink and moist. NECK: Trachea midline. No JVD. CARDIOVASCULAR: Regular rate and rhythm. RESPIRATORY: No accessory muscle use. Diminished breath sounds bilaterally GASTROINTESTINAL: Abdomen soft, non-tender, nondistended. Hepatic and splenic margins not palpable. Midline surgical scar, normoactive bowel sounds MUSCULOSKELETAL: Left hip dressing clean, dry and intact. ICE packs in place to left hip. NEUROLOGICAL: Awake and alert to person place time. No obvious cranial nerve deficits. Motor grossly within normal limits. Five out of 5 muscle strength in the bilateral arms and right lower legs. Normal speech. PSYCHIATRIC: Appropriate mood and affect; insight and judgment normal. Results Labs CBC & Chem 7: 05/05/18 05:43 05/05/18 05:43 Imaging Imaging: Impressions Chest X-Ray 05/04/18 00:00 CONCLUSION: 1. Left subclavian central line distal tip likely in the superior aspect of the SVC. No pneumothorax is visualized. 2. Underinflated examination with mild bibasilar opacity most likely representing subsegmental atelectasis. Femur X-Ray 05/04/18 00:00 CONCLUSION: Improved alignment following left femur ORIF. Assessment and Plan (1) Fracture of femoral shaft, left, closed: Code(s): S72.302A - Unspecified fracture of shaft of left femur, initial encounter for closed fracture Status: Acute Plan 83-year-old white male with a history of COPD, sleep apnea presents with left leg pain after he sustained a fall yesterday Left hip intertrochanteric fracture with distal femoral fracture above prosthesis - evaluated 05/05/18, stable -Ortho consulted -s/p ORIF 05/04/18 -continue pain control -PT eval/treat Symptomatic anemia, acute blood loss - evaluated 05/05/18 -multifactorial, worse 2/2 acute blood loss post surgery -H/H 5.8/17.6 pre, 8.2/23.8 post transfusion -transfused PRBC's 05/04/18 -monitor Acute kidney injury superimposed on likely chronic kidney disease stage III as patient had GFR 54 in February 2015 - slightly worse today -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 every 3 months, last appt 2 months ago -consult Nephrology, we appreciate their input -continue IV fluid hydration and monitor -avoid nephrotoxins -repeat BMP this afternoon Leukocytosis, likely reactive 2/2 stress -repeat CBC in am History of COPD - chronic and stable -no acute exacerbation -continue with inhaler, DuoNeb as needed for any shortness of breath History of sleep apneacontinue with CPAP Hyperkalemia - evaluated 05/05/18 -Kayexalate x 1 dose History of essential tremor continue with home primidone MDM: self Code: Full GI ppx: PO intake DVT ppx: Lovenox SQ 05/05/18 Discussed Condition With: RN, patient Discharge Planning: likely SNF, pending PT evaluation and treatment Progress Note: Quality VTE Deep Vein Thrombosis/Pulmonary Embolism Present on Admission: No _ (1) Fracture of femoral shaft, left, closed Qualifiers: Encounter type: initial encounter Fracture alignment: displaced Fracture healing: Fracture morphology: oblique Qualified Code(s): S72.332A - Displaced oblique fracture of shaft of left femur, initial encounter for closed fracture
[2018-05-05] MEDS: Morphine Sulfate Inj 2 MG/ML Vial IV.PUSH PRN ×2 (14:31→17:24)
[2018-05-05] MEDS ORDERED: Albumin Human 25% Inj 100 ML IV.SIG ONE (17:57)
[2018-05-05] MEDS ORDERED: Sodium Bicarbonate 8.4% Inj 50 MEQ/50 ML Syringe IV.PUSH ONE (18:01)
--- NOTE | 2018-05-05 18:05 | P.CONNP ---
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 [facility] - History History Provided By: Patient - Medical History Medical History: Medical History (Last Reviewed 05/05/18 @ 18:02 by Nishi Miranda MD) COPD (chronic obstructive pulmonary disease) Essential tremor Gout Sleep apnea Renal cancer Renal cancer - Surgical History Surgical History: Surgical History (Last Reviewed 05/05/18 @ 18:02 by Nishi Miranda MD) History of bilateral hip replacements History of nephrectomy, unilateral History of right knee joint replacement - Family History Family History: Family History (Last Reviewed 05/05/18 @ 18:02 by Nishi Miranda MD) Father Bone cancer - Social History I have reviewed the patient's Social History: Yes - Tobacco History Second Hand Smoke Exposure: No Tobacco Use In Past 30 Days: No Smoking Status: Former smoker Tobacco Type: Cigarettes - Alcohol History How Often Do You Have a Drink Containing Alcohol: 2 to 4 times a month - Substance Use History Substance History: No History of Abuse - Travel History Recent Travel in the [place] Within the Last 8 Weeks: No Recent Travel Out of the Country Within the Last 8 Weeks: No - Immunization History Tetanus Immunization: <5 Years Hx Influenza Vaccine This Season: Yes Medications and Allergies Active Medications: Active Medications Acetaminophen (Tylenol) 650 mg PO Q4H PRN PRN Reason: Temp > 100.4 Acetaminophen (Tylenol) 650 mg PO Q6H PRN PRN Reason: PAIN SCALE 1 TO 2 Hydrocodone Bitart/Acetaminophen ([place] 5/325) 1 tab PO Q4H PRN PRN Reason: PAIN SCALE 3 TO 5 Last Admin: 05/05/18 16:13 Dose: 1 tab Hydrocodone Bitart/Acetaminophen ([place] 7.5/325) 1 tab PO Q4H PRN PRN Reason: PAIN SCALE 6 TO 10 Last Admin: 05/05/18 11:54 Dose: 1 tab Al Hydroxide/Mg Hydroxide (Milk Of Magnesia Liq) 30 ml PO Q12H PRN PRN Reason: Mild Constipation Albuterol (Duoneb Neb (Prn)) 1 ampul NEB Q2HR NEB PRN PRN Reason: SHORTNESS OF BREATH Benzocaine/Menthol (Cepacol Max Strength) 1 lozenge BUCCAL Q2H PRN PRN Reason: SORE THROAT Bisacodyl (Dulcolax Supp) 10 mg RECTAL DAILY PRN PRN Reason: SEVERE CONSITIPATION Budesonide/Formoterol Fumarate (Symbicort 160/4.5 Mcg Inh) 2 puff INH BID [facility] Last Admin: 05/05/18 08:10 Dose: Not Given Diphenhydramine HCl (Benadryl) 25 mg PO Q6H PRN PRN Reason: ITCHING Duloxetine HCl (Cymbalta) 60 mg PO DAILY [facility] Last Admin: 05/05/18 08:08 Dose: 60 mg Enoxaparin Sodium (Lovenox Inj) 40 mg SQ Q24H [facility] Last Admin: 05/05/18 10:38 Dose: 40 mg Finasteride (Proscar) 5 mg PO DAILY [facility] Last Admin: 05/05/18 08:09 Dose: 5 mg Sodium Chloride (Ns Inj) 1,000 mls @ 75 mls/hr IV.CONT .[id number] [facility] Last Admin: 05/05/18 11:51 Dose: 75 mls/hr Albumin Human (Flexbumin 25% Inj) 100 mls @ 60 mls/hr IV.SIG ONCE ONE Stop: 05/05/18 19:36 Lactulose (Lactulose Liq) 30 ml PO DAILY PRN PRN Reason: SEVERE CONSITIPATION Morphine Sulfate (Morphine Inj) 2 mg IV.PUSH Q3H PRN PRN Reason: BREAKTHROUGH PAIN Last Admin: 05/05/18 17:24 Dose: 2 mg Naloxone HCl (Narcan Inj) 0.4 mg IV.PUSH UNSCH PRN PRN Reason: SEE LABEL COMMENTS Ondansetron HCl (Zofran Inj) 4 mg IV.PUSH Q6H PRN PRN Reason: NAUSEA OR VOMITING Primidone (Mysoline) 50 mg PO DAILY [facility] Last Admin: 05/05/18 08:08 Dose: 50 mg Senna/Docusate Sodium (Griselda-Colace) 1 tab PO BID [facility] Last Admin: 05/05/18 08:09 Dose: 1 tab Sennosides (Senokot) 17.2 mg PO Q12H PRN PRN Reason: Moderate Constipation Sodium Chloride (Ns Flush) 2 ml IV.FLUSH UNSCH PRN PRN Reason: FLUSH AFTER USING IV ACCESS Sodium Chloride (Ns Flush) 2 ml IV.FLUSH BID [facility] Last Admin: 05/05/18 08:09 Dose: 2 ml Sodium Chloride (Ns Flush) 2 ml IV.FLUSH BID [facility] Last Admin: 05/05/18 08:10 Dose: 2 ml Sodium Chloride (Ns Flush) 2 ml IV.FLUSH PRN PRN PRN Reason: FLUSH AFTER USING IV ACCESS Trazodone HCl (Desyrel) 50 mg PO HS PRN PRN Reason: Insomnia Allergies Allergy/AdvReac Type Severity Reaction Status Date / Time tramadol Allergy Unknown RASH, Verified 05/03/18 10:28 ITCHINESS Home Medications Medication Instructions Recorded Confirmed Type albuterol sulfate 2.5 mg INHALATION Q20M PRN 05/03/18 05/03/18 History albuterol sulfate [Ventolin HFA] 05/03/18 History allopurinol 100 mg PO DAILY PRN 05/03/18 05/03/18 History aspirin [Aspir-81] 05/03/18 History duloxetine 60 mg PO DAILY 05/03/18 05/03/18 History finasteride 5 mg PO DAILY 05/03/18 05/03/18 History fluticasone-salmeterol [Advair 1 inh INHALATION BID 05/03/18 05/03/18 History Diskus] primidone 50 mg PO DAILY 05/03/18 05/03/18 History trazodone 50 mg PO HS PRN 05/03/18 05/03/18 History Exam Vital signs: Vital Signs 05/04/18 18:35 05/04/18 20:20 05/05/18 00:00 Temperature 98.4 F 98.8 F 98.6 F Pulse Rate 76 79 76 Respiratory Rate 16 18 18 Blood Pressure 97/50 L 92/53 L 115/57 L Pulse Oximetry 94 L 100 94 L 05/05/18 01:30 05/05/18 04:00 05/05/18 08:00 Temperature 98.7 F 97.9 F Pulse Rate 93 H 81 Respiratory Rate 17 18 18 Blood Pressure 109/74 124/61 Pulse Oximetry 95 92 L 05/05/18 12:00 05/05/18 12:05 05/05/18 16:00 Temperature 98.4 F 99.1 F Pulse Rate 85 85 Respiratory Rate 18 16 Blood Pressure 122/57 L 132/60 Pulse Oximetry 92 L 96 93 L Intake & Output 05/04/18 05/05/18 05/05/18 18:59 06:59 18:59 Intake Total 4540 / 4540 1400 / 1400 Output Total 1000 / 1000 200 / 200 Balance 3540 / 3540 1200 / 1200 Weight 102.5 kg Intake: IV 1100 / 1100 1000 / 1000 NS Inj 1,000 ML @ 75 mls/hr IV. 1000 / 1000 1000 / 1000 CONT .[id number] [facility] Rx#:[id number] Ancef 1 GM Premix Inj 2 gm In 100 / 100 100 ml @ 0 mls/hr IV.SIG .STK- [facility] Rx#:[id number] Oral 240 / 240 Anesthesia Amount 3200 / 3200 Intake (Blood Product) Amt 0 / 0 400 / 400 Rbc As-3 Leukoreduced Unit 0 / 0 [id number] Rbc As-3 Leukoreduced Unit 0 / 0 400 / 400 [id number] Output: Urine 200 / 200 Estimated Blood Loss 1000 / 1000 Other: # Voids 1 Date of Last Bowel Movement 05/03/18 05/04/18 Narrative: GENERAL: Well-nourished, well-developed patient. SKIN: Warm and dry. HEAD: Normocephalic. EYES: No scleral icterus. No injection or drainage. NECK: Supple, trachea midline. No JVD or lymphadenopathy. CARDIOVASCULAR: Regular rate and rhythm without murmurs, gallops, or rubs. RESPIRATORY: Breath sounds equal bilaterally. No accessory muscle use. GASTROINTESTINAL: Abdomen soft, non-tender, nondistended. EXTREMITIES: Left leg bandage and stabilized NEUROLOGICAL: Awake, alert, and oriented x 3. Non-focal. Results - Lab Results 05/05/18 05:43 05/05/18 17:50 Most recent lab results Calcium 6.8 mg/dL (8.5-10.1) L* D 05/05/18 05:43 Assessment and Plan - Assessment (1) Acute renal failure Code(s): N17.9 - Acute kidney failure, unspecified Status: Acute (2) Anemia Code(s): D64.9 - Anemia, unspecified Status: Acute (3) Fracture of femoral shaft, left, closed Code(s): S72.302A - Unspecified fracture of shaft of left femur, initial encounter for closed fracture Status: Acute (4) Hyperkalemia Code(s): E87.5 - Hyperkalemia Status: Acute (5) Metabolic acidosis Code(s): E87.2 - Acidosis Status: Acute - Plan Patient has acute kidney injury due to blood loss and the worsening renal failure is due to acute tubular necrosis patient hemoglobin dropped critically low and was given blood transfusion, avoid nephrotoxic agents, avoid nonsteroidal antiinflammatory Hydrate him and give him albumin blood product Give calcium IV bicarbonate Monitor hyperkalemia Modify his diet to renal diet Obtain ultrasound kidney Follow renal functions avoid nephrotoxic agents. (3) Fracture of femoral shaft, left, closed Qualifiers: Encounter type: initial encounter Fracture morphology: oblique Fracture alignment: displaced Qualified Code(s): S72.332A - Displaced oblique fracture of shaft of left femur, initial encounter for closed fracture
[2018-05-05 18:54] LABS: Calcium 6.8 mg/dL (8.5-10.1); Carbon Dioxide 22.2 meq/L (21.0-32.0); Potassium 4.8 meq/L (3.5-5.1)
[2018-05-05 19:05] LABS: Albumin 2.2 g/dL (3.4-5.0); Calcium-Albumin Corrected 8.2 mg/dL (8.5-10.1)
[2018-05-05 20:23] LABS: Creatinine,Urine Random 145 mg/dL (27-300); Sodium,Urine Random 26 meq/L
--- NOTE | 2018-05-05 20:27 | US ---
EXAM DATE: 05/05/2018 7:59 PM EST AGE/SEX: 82 years / Male INDICATIONS: Increased lab values. CLINICAL DATA: This is the patient's initial encounter. Patient reports that signs and symptoms have been present for 1 day and indicates a pain score of 1/10. MEDICAL/SURGICAL HISTORY: Chronic obstructive pulmonary disease. Renal cancer. Sleep apnea. Gou t. Nephrectomy, left. Right Knee replacement. Bilateral hip replacements. COMPARISON: No prior exams available for comparison. MEASUREMENTS: Right Kidney:__11.9 x 7.0 x 5.6 cm Left Kidney:__. Surgically absent. FINDINGS: Right Kidney: Normal echogenicity and cortical thickness. No mass or hydronephrosis. Left Kidney: Surgically absent. Bladder: Within normal limits given the degree of distension. Other: None. CONCLUSION: Normal right kidney and surgically absent left kidney. Electronically signed by: Saleem Aguilar MD 05/05/2018 8:26 PM EST
[2018-05-05] MEDS ORDERED: Calcium Gluconate Inj 1 GM in Sodium Chlor 0.9% Inj 100 ML IV.SIG ONE (22:00)
[2018-05-06 05:17] LABS: Baso % (Auto) 0.3 % (0.0-2.0); Eos % (Auto) 0.1 % (0.0-4.0); Lymph # (Auto) 0.3 th/mm3 (1.0-4.8); Lymph % (Auto) 3.5 % (9.0-44.0); Mean Corpuscular HGB Conc 34.3 % (32.0-36.0); Mean Corpuscular Hemoglobin 34.7 pg (27.0-34.0); Mean Corpuscular Volume 101.1 fL (80.0-100.0); Mean Platelet Volume 9.6 fL (7.0-11.0); Mono # (Auto) 1.1 th/mm3 (0.0-0.9); Mono % (Auto) 11.6 % (0.0-8.0); Neut # (Auto) 8.2 th/mm3 (1.8-7.7); Neut % (Auto) 84.5 % (16.0-70.0); Platelet Count 93 th/mm3 (150-450); Red Cell Distribution Width 18.4 % (11.6-17.2); White Blood Count 9.7 th/mm3 (4.0-11.0)
[2018-05-06 05:36] LABS: Hematocrit 19.2 % (39.0-51.0); Hemoglobin 6.6 gm/dL (13.0-17.0)
[2018-05-06 05:47] LABS: Calcium 7.2 mg/dL (8.5-10.1); Carbon Dioxide 21.6 meq/L (21.0-32.0); Phosphorus 3.7 mg/dL (2.5-4.9); Potassium 4.4 meq/L (3.5-5.1)
[2018-05-06 05:57] LABS: Albumin 2.5 g/dL (3.4-5.0); Calcium-Albumin Corrected 8.4 mg/dL (8.5-10.1)
[2018-05-06] MEDS ORDERED: Sodium Chlor 0.9% Inj 250 ML IV.SIG SCH ×2 (07:00→14:00)
--- NOTE | 2018-05-06 08:08 | P.PN ---
Subjective Interval history: Follow-up visit for left intratrochanteric fracture with distal femoral fracture s/p ORIF, anemia, hypokalemia and IVETT. Patient seen and examined resting in bed comfortably in no acute distress. He denies any shortness of breath, chest pain, dizziness, lightheadedness, nausea, vomiting or diarrhea. Endorses constipation, positive flatus, voiding without any dysuria or hematuria. Patient reports left hip pain is controlled, alleviated with pain medication, pain will increase with movement and activity. Spoke with nurse reports some serosanguineous drainage from the left hip area, no other bleeding noted. Physical Exam Vital signs: Vital Signs 05/05/18 12:00 05/05/18 12:05 05/05/18 16:00 Temperature 98.4 F 99.1 F Pulse Rate 85 85 Respiratory Rate 18 16 Blood Pressure 122/57 L 132/60 Pulse Oximetry 92 L 96 93 L 05/05/18 19:55 05/06/18 00:25 05/06/18 05:15 Temperature 97.7 F 98.5 F 97.7 F Pulse Rate 97 H 86 86 Respiratory Rate 18 18 18 Blood Pressure 143/67 H 119/57 L 107/53 L Pulse Oximetry 92 L 92 L 92 L Intake & Output 05/05/18 05/06/18 05/06/18 18:59 06:59 18:59 Intake Total 60 / 60 Output Total 1200 / 1200 Balance -1140 / -1140 Weight 108.9 kg Intake: Oral 60 / 60 Output: Urine 1200 / 1200 Other: # Voids 3 Date of Last Bowel Movement 05/04/18 05/04/18 # Bowel Movements 0 Narrative: GENERAL: Well-nourished, well-developed patient. SKIN: Warm and dry. Left hip dressing dry and intact, trace edema noted. Left upper chest and lateral ecchymosis. Left upper chest subclavian central line. HEAD: Normocephalic. EYES: No scleral icterus. No injection or drainage. NECK: Supple, trachea midline. No JVD. CARDIOVASCULAR: Regular rate and rhythm without murmurs, gallops, or rubs. RESPIRATORY: Breath sounds equal bilaterally. No accessory muscle use. GASTROINTESTINAL: Abdomen soft/obese, non-tender, nondistended. EXTREMITIES: Left knee immobilizer in place, normal movement, capillary refill less than 3 seconds, normal sensation. NEUROLOGICAL: Awake, alert, and oriented x 3. Non-focal. Results - Labs CBC & Chem 7: 05/07/18 04:23 05/07/18 04:26 Laboratory Results - last 24 hr 05/05/18 05/05/18 05/06/18 17:50 18:45 04:50 WBC 9.7 RBC 1.90 L Hgb 6.6 L* Hct 19.2 L* MCV 101.1 H D MCH 34.7 H MCHC 34.3 RDW 18.4 H D Plt Count 93 L MPV 9.6 Prelim Diff (Auto) Slide review pending Neut % (Auto) 84.5 H Lymph % (Auto) 3.5 L [place] % (Auto) 11.6 H Eos % (Auto) 0.1 Baso % (Auto) 0.3 Neut # (Auto) 8.2 H Lymph # (Auto) 0.3 L [place] # (Auto) 1.1 H Eos # (Auto) 0.0 Baso # (Auto) 0.0 WBC Differential . Diff Scan Auto diff confirmed Differential Comment . Sodium 140 Potassium 4.8 Chloride 111 H Carbon Dioxide 22.2 Anion Gap 7 BUN 50 H Creatinine 3.49 H Estimated GFR 17 L Random Glucose 120 H Calcium 6.8 L* Calcium Adj for Albumin 8.2 L Phosphorus Albumin 2.2 L Ur Random Creatinine 145 Ur Random Sodium 26 MTS Gel Crossmatch Bld Prod Order Comment 05/06/18 05/06/18 04:50 06:11 WBC RBC Hgb Hct MCV MCH MCHC RDW Plt Count MPV Prelim Diff (Auto) Neut % (Auto) Lymph % (Auto) [place] % (Auto) Eos % (Auto) Baso % (Auto) Neut # (Auto) Lymph # (Auto) [place] # (Auto) Eos # (Auto) Baso # (Auto) WBC Differential Diff Scan Differential Comment Sodium 142 Potassium 4.4 Chloride 112 H Carbon Dioxide 21.6 Anion Gap 8 BUN 46 H Creatinine 3.03 H Estimated GFR 20 L Random Glucose 124 H Calcium 7.2 L* Calcium Adj for Albumin 8.4 L Phosphorus 3.7 Albumin 2.5 L Ur Random Creatinine Ur Random Sodium MTS Gel Crossmatch See Detail Bld Prod Order Comment - Imaging Impressions Abdomen/Bladder Ultrasound 05/05/18 18:07 CONCLUSION: Normal right kidney and surgically absent left kidney. Assessment and Plan - Assessment (1) Fracture of femoral shaft, left, closed Code(s): S72.302A - Unspecified fracture of shaft of left femur, initial encounter for closed fracture Status: Acute - Plan 83-year-old white male with a history of COPD, sleep apnea presents with left leg pain after he sustained a fall yesterday Left hip intertrochanteric fracture with distal femoral fracture above prosthesis -Ortho consulted -s/p ORIF 05/04/18 -continue pain control -PT eval/treat Symptomatic macrocytic anemia, acute blood loss -multifactorial, worse 2/2 acute blood loss post surgery - H/H 5.8/17.6 pre, 8.2/23.8 post transfusion -transfused PRBC's 05/04/18 -Drop in H&H once again this morning 6.6/19.2 -Transfuse with 2 units of PRBCs. -Check stool for Hemoccult, check iron studies, folate, vitamin B,hold subcu Lovenox in light of ongoing anemia. No clear source of bleeding this morning. Acute kidney injury superimposed on likely chronic kidney disease stage III as patient had GFR 54 in February 2015 - slightly worse today -hx of left sided nephrectomy 14 yrs ago 2/2 cancer -f/u with [facility] in [facility] every 3 months, last appt 2 months ago -consult Nephrology, we appreciate their input. s/p Bicarb and calcium gluconate. -continue IV fluid hydration and monitor -avoid nephrotoxins -Creatinine with slight improvement this morning, continue to monitor History of COPD - chronic and stable -no acute exacerbation -continue with inhaler, DuoNeb as needed for any shortness of breath History of sleep apneacontinue with CPAP Hyperkalemia - s/p Kayexalate, resolved Constipation, acute -Continue bowel program, as needed laxatives as needed. History of essential tremor continue with home primidone DVT prophylaxis-SCD's Lovenox on hold due to anemia. Discussed Condition With: Patient, RN and Discharge Planning: PT recommends PT at rehab, CM assisting with placement. (1) Fracture of femoral shaft, left, closed Qualifiers: Encounter type: initial encounter Fracture morphology: oblique Fracture alignment: displaced Qualified Code(s): S72.332A - Displaced oblique fracture of shaft of left femur, initial encounter for closed fracture
[2018-05-06] MEDS: Sod Chloride 0.9% Inj 1,000 ML IV.CONT SCH (08:24)
[2018-05-06] MEDS: Finasteride 5 MG Tablet PO SCH (08:25)
[2018-05-06] MEDS: Senna/Docusate Sodium 8.6/50 MG Tablet PO SCH ×2 (08:25→21:00)
[2018-05-06] MEDS: Duloxetine 60 MG DR Capsule PO SCH (08:25)
[2018-05-06] MEDS: Primidone 50 MG Tablet PO SCH (08:25)
[2018-05-06] MEDS: Budesonide-Formoterol 160/4.5 MCG 6 GM Inhaler INH SCH ×2 (08:26→21:00)
--- NOTE | 2018-05-06 14:21 | P.PNNP ---
Subjective Interval history: doing better Hb dropped slight discharge from Left hip area Physical Exam Vital signs: Vital Signs 05/05/18 16:00 05/05/18 19:55 05/06/18 00:25 Temperature 99.1 F 97.7 F 98.5 F Pulse Rate 85 97 H 86 Respiratory Rate 18 Blood Pressure 132/60 143/67 H 119/57 L Pulse Oximetry 93 L 92 L 92 L 05/06/18 01:00 05/06/18 05:15 05/06/18 08:00 Temperature 97.7 F 98 F Pulse Rate 86 87 Respiratory Rate 17 18 19 Blood Pressure 107/53 L 118/57 L Pulse Oximetry 92 L 97 05/06/18 08:15 05/06/18 08:34 05/06/18 12:00 Temperature 98 F 98.2 F 98.2 F Pulse Rate 87 88 83 Respiratory Rate 19 19 19 Blood Pressure 118/57 L 122/59 L 119/55 L Pulse Oximetry 93 L 97 94 L Intake & Output 05/05/18 05/06/18 05/06/18 18:59 06:59 18:59 Intake Total 1060 / 1060 / 30 Output Total 1200 / 1200 650 / 650 Balance -140 / -140 -620 / -620 Weight 108.9 kg Intake: IV 1000 / 1000 NS Inj 1,000 ML @ 75 mls/hr IV. 1000 / 1000 CONT .[id number] [facility] Rx#:[id number] Oral 60 / 60 Other 30 / 30 Rbc As-3 Leukoreduced Unit 30 / 30 [id number] Intake (Blood Product) Amt 0 / 0 Rbc As-3 Leukoreduced Unit 0 / 0 [id number] Output: Urine 1200 / 1200 650 / 650 Other: # Voids 3 Date of Last Bowel Movement 05/04/18 05/04/18 05/04/18 # Bowel Movements 0 Narrative: GENERAL: Well-nourished, well-developed patient. SKIN: Warm and dry. HEAD: Normocephalic. EYES: No scleral icterus. No injection or drainage. NECK: Supple, trachea midline. No JVD or lymphadenopathy. CARDIOVASCULAR: Regular rate and rhythm without murmurs, gallops, or rubs. RESPIRATORY: Breath sounds equal bilaterally. No accessory muscle use. GASTROINTESTINAL: Abdomen soft, non-tender, nondistended. EXTREMITIES: left leg in stabilizer, slight oozing of would NEUROLOGICAL: Awake, alert, and oriented x 3. Non-focal. Assessment and Plan - Assessment (1) Acute renal failure Code(s): N17.9 - Acute kidney failure, unspecified Status: Acute (2) Anemia Code(s): D64.9 - Anemia, unspecified Status: Acute (3) Fracture of femoral shaft, left, closed Code(s): S72.302A - Unspecified fracture of shaft of left femur, initial encounter for closed fracture Status: Acute Qualifiers: Encounter type: initial encounter Fracture morphology: oblique Fracture alignment: displaced Qualified Code(s): S72.332A - Displaced oblique fracture of shaft of left femur, initial encounter for closed fracture (4) Hyperkalemia Code(s): E87.5 - Hyperkalemia Status: Acute (5) Metabolic acidosis Code(s): E87.2 - Acidosis Status: Acute - Plan Patient has acute kidney injury due to blood loss and the worsening renal failure is due to acute tubular necrosis Hb low again PRBC ordered continue to respond to hydration and PRBC US Rt kidney -ve hx of Lt nephrectomy follow BMP
[2018-05-06 15:54] LABS: % Iron Saturation 9.1 % (20-50)
[2018-05-06 16:34] LABS: Folate 9.1 ng/mL (3.1-17.5)
--- NOTE | 2018-05-06 21:50 | P.PNOP ---
Subjective Interval history: Pain controlled. Patient comfortable. Physical Exam Vital signs: Vital Signs 05/06/18 00:25 05/06/18 01:00 05/06/18 05:15 Temperature 98.5 F 97.7 F Pulse Rate 86 86 Respiratory Rate 18 17 18 Blood Pressure 119/57 L 107/53 L Pulse Oximetry 92 L 92 L 05/06/18 08:00 05/06/18 08:15 05/06/18 08:34 Temperature 98 F 98 F 98.2 F Pulse Rate 87 87 88 Respiratory Rate 19 19 19 Blood Pressure 118/57 L 118/57 L 122/59 L Pulse Oximetry 97 93 L 97 05/06/18 12:00 05/06/18 15:57 05/06/18 16:00 Temperature 98.2 F 98.5 F 98.5 F Pulse Rate 83 82 82 Respiratory Rate 19 19 19 Blood Pressure 119/55 L 112/56 L 112/56 L Pulse Oximetry 94 L 92 L 92 L 05/06/18 16:13 05/06/18 16:38 Temperature 98.2 F 98.2 F Pulse Rate 80 81 Respiratory Rate 18 18 Blood Pressure 108/51 L 107/50 L Pulse Oximetry 94 L Intake & Output 05/06/18 05/06/18 05/07/18 06:59 18:59 06:59 Intake Total 1060 / 1060 55 / 55 Output Total 1200 / 1200 650 / 650 Balance -140 / -140 -595 / -595 Weight 108.9 kg Intake: IV 1000 / 1000 NS Inj 1,000 ML @ 75 mls/hr IV. 1000 / 1000 CONT .[id number] [facility] Rx#:[id number] Oral 60 / 60 Other 55 / 55 Rbc As-3 Leukoreduced Unit 30 / 30 [id number] Rbc As-3 Leukoreduced Unit 25 / 25 [id number] Intake (Blood Product) Amt 0 / 0 Rbc As-3 Leukoreduced Unit 0 / 0 [id number] Rbc As-3 Leukoreduced Unit 0 / 0 [id number] Output: Urine 1200 / 1200 650 / 650 Other: # Voids 3 Date of Last Bowel Movement 05/04/18 05/04/18 # Bowel Movements 0 Narrative: Left thigh dressing C/D/I calves soft negative Homans NVI knee immobilizer in place Results - Labs CBC & Chem 7: 05/06/18 04:50 05/06/18 04:50 Laboratory Results - last 24 hr 05/06/18 05/06/18 05/06/18 04:50 04:50 04:50 WBC 9.7 RBC 1.90 L Hgb 6.6 L* Hct 19.2 L* MCV 101.1 H D MCH 34.7 H MCHC 34.3 RDW 18.4 H D Plt Count 93 L MPV 9.6 Prelim Diff (Auto) Slide review pending Neut % (Auto) 84.5 H Lymph % (Auto) 3.5 L [place] % (Auto) 11.6 H Eos % (Auto) 0.1 Baso % (Auto) 0.3 Neut # (Auto) 8.2 H Lymph # (Auto) 0.3 L [place] # (Auto) 1.1 H Eos # (Auto) 0.0 Baso # (Auto) 0.0 WBC Differential . Diff Scan Auto diff confirmed Differential Comment . Sodium 142 Potassium 4.4 Chloride 112 H Carbon Dioxide 21.6 Anion Gap 8 BUN 46 H Creatinine 3.03 H Estimated GFR 20 L Random Glucose 124 H Calcium 7.2 L* Calcium Adj for Albumin 8.4 L Phosphorus 3.7 Iron 15 L TIBC 165 L % Saturation 9.1 L Ferritin 210 Albumin 2.5 L Vitamin B12 491 Folate 9.1 MTS Gel Crossmatch Bld Prod Order Comment 05/06/18 05/06/18 06:11 13:53 WBC RBC Hgb Hct MCV MCH MCHC RDW Plt Count MPV Prelim Diff (Auto) Neut % (Auto) Lymph % (Auto) [place] % (Auto) Eos % (Auto) Baso % (Auto) Neut # (Auto) Lymph # (Auto) [place] # (Auto) Eos # (Auto) Baso # (Auto) WBC Differential Diff Scan Differential Comment Sodium Potassium Chloride Carbon Dioxide Anion Gap BUN Creatinine Estimated GFR Random Glucose Calcium Calcium Adj for Albumin Phosphorus Iron TIBC % Saturation Ferritin Albumin Vitamin B12 Folate MTS Gel Crossmatch See Detail See Detail Bld Prod Order Comment Assessment and Plan - Problem List (1) Fracture of femoral shaft, left, closed Code(s): S72.302A - Unspecified fracture of shaft of left femur, initial encounter for closed fracture Status: Acute Qualifiers: Encounter type: initial encounter Fracture morphology: oblique Fracture alignment: displaced Qualified Code(s): S72.332A - Displaced oblique fracture of shaft of left femur, initial encounter for closed fracture - Assessment and Plan POD #1 Left femur open reduction and internal fixation of supracondylar and shaft fracture above total knee replacement and below total hip replacement Hgb 6.6 Pain management Medical management DVT Prophylaxis Physical therapy - TTWB D/C planning - anticipating SNF Monitor
[2018-05-06 22:54] LABS: Hematocrit 24.8 % (39.0-51.0); Hemoglobin 8.5 gm/dL (13.0-17.0)
[2018-05-07 05:34] LABS: Hematocrit 24.1 % (39.0-51.0); Hemoglobin 8.3 gm/dL (13.0-17.0)
[2018-05-07] MEDS: Sod Chloride 0.9% Inj 1,000 ML IV.CONT SCH ×2 (06:00→10:20)
[2018-05-07 06:09] LABS: Calcium 7.2 mg/dL (8.5-10.1); Carbon Dioxide 23.4 meq/L (21.0-32.0); Potassium 3.9 meq/L (3.5-5.1)
[2018-05-07 06:30] LABS: Albumin 2.2 g/dL (3.4-5.0); Calcium-Albumin Corrected 8.6 mg/dL (8.5-10.1)
[2018-05-07] MEDS: Ferrous Sulfate 325 MG Tablet PO SCH (08:38)
[2018-05-07] MEDS: Senna/Docusate Sodium 8.6/50 MG Tablet PO SCH ×2 (08:38→21:34)
[2018-05-07] MEDS: Primidone 50 MG Tablet PO SCH (08:38)
[2018-05-07] MEDS: Finasteride 5 MG Tablet PO SCH (08:38)
[2018-05-07] MEDS: Duloxetine 60 MG DR Capsule PO SCH (08:38)
[2018-05-07] MEDS: Budesonide-Formoterol 160/4.5 MCG 6 GM Inhaler INH SCH ×2 (08:49→23:09)
--- NOTE | 2018-05-07 09:31 | P.PN ---
Subjective Interval history: Patient is seen and examined resting in bed comfortably in no acute distress. Denies any fevers, chills, nausea, vomiting, diarrhea, cough, shortness of breath or chest pain. Patient states that he would like to go to [place] [facility] once discharged. Spoke with nurse who reports copious amounts of bleeding from left hip dressing change earlier today. Physical Exam Vital signs: Vital Signs 05/06/18 12:00 05/06/18 15:57 05/06/18 16:00 Temperature 98.2 F 98.5 F 98.5 F Pulse Rate 83 82 82 Respiratory Rate 19 19 19 Blood Pressure 119/55 L 112/56 L 112/56 L Pulse Oximetry 94 L 92 L 92 L 05/06/18 16:13 05/06/18 16:38 05/06/18 20:00 Temperature 98.2 F 98.2 F 99.5 F Pulse Rate 80 81 75 Respiratory Rate 18 18 18 Blood Pressure 108/51 L 107/50 L 135/59 L Pulse Oximetry 94 L 92 L 05/07/18 00:00 05/07/18 08:00 Temperature 98.5 F 97.7 F Pulse Rate 77 57 L Respiratory Rate 18 19 Blood Pressure 125/60 135/60 Pulse Oximetry 94 L 95 Intake & Output 05/06/18 05/07/18 05/07/18 18:59 06:59 18:59 Intake Total 55 / 55 1100 / 1100 Output Total 650 / 650 Balance -595 / -595 1100 / 1100 Weight 102 kg Intake: IV 1100 / 1100 NS Inj 1,000 ML @ 75 mls/hr IV. 1000 / 1000 CONT .[id number] [facility] Rx#:[id number] NS Inj 250 ML @ 15 mls/hr IV. 100 / 100 SIG ONCE [facility] Rx#:[id number] Other 55 / 55 Rbc As-3 Leukoreduced Unit 30 / 30 [id number] Rbc As-3 Leukoreduced Unit 25 / 25 [id number] Intake (Blood Product) Amt 0 / 0 Rbc As-3 Leukoreduced Unit 0 / 0 [id number] Rbc As-3 Leukoreduced Unit 0 / 0 [id number] Output: Urine 650 / 650 Other: # Voids 1 Date of Last Bowel Movement 05/04/18 05/06/18 # Bowel Movements 1 Results - Labs CBC & Chem 7: 12/11/18 04:23 05/07/18 04:26 Laboratory Results - last 24 hr 05/06/18 05/06/18 05/06/18 04:50 06:11 13:53 Hgb Hct Sodium Potassium Chloride Carbon Dioxide Anion Gap BUN Creatinine Estimated GFR Random Glucose Calcium Calcium Adj for Albumin Iron 15 L TIBC 165 L % Saturation 9.1 L Ferritin 210 Albumin Vitamin B12 491 Folate 9.1 MTS Gel Crossmatch See Detail See Detail Bld Prod Order Comment 05/06/18 05/07/18 05/07/18 22:40 04:23 04:26 Hgb 8.5 L 8.3 L Hct 24.8 L 24.1 L Sodium 143 Potassium 3.9 Chloride 113 H Carbon Dioxide 23.4 Anion Gap 7 BUN 38 H Creatinine 2.25 H Estimated GFR 28 L Random Glucose 107 H Calcium 7.2 L* Calcium Adj for Albumin 8.6 Iron TIBC % Saturation Ferritin Albumin 2.2 L Vitamin B12 Folate MTS Gel Crossmatch Bld Prod Order Comment Microbiology 05/06/18 19:40 Stool Stool Occult Blood (ELIZABETH) - Final Hemoccult negative Assessment and Plan - Assessment (1) Fracture of femoral shaft, left, closed Code(s): S72.302A - Unspecified fracture of shaft of left femur, initial encounter for closed fracture Status: Acute - Plan 83-year-old white male with a history of COPD, sleep apnea presents with left leg pain after he sustained a fall yesterday Left hip intertrochanteric fracture with distal femoral fracture above prosthesis -Ortho consulted -s/p ORIF 05/04/18 -continue pain control -PT eval/treat Symptomatic macrocytic anemia, acute blood loss -multifactorial, worse 2/2 acute blood loss post surgery - H/H 5.8/17.6 pre, 8.2/23.8 post transfusion -transfused PRBC's 05/04/18 -Drop in H&H once again this morning 6.6/19.2 -Transfuse with 2 units of PRBCs. -Check stool for Hemoccult, check iron studies, folate, vitamin B,hold subcu Lovenox in light of ongoing anemia. No clear source of bleeding this morning. Acute kidney injury superimposed on likely chronic kidney disease stage III as patient had GFR 54 in February 2015 - slightly worse today -hx of left sided nephrectomy 14 yrs ago 2/2 cancer -f/u with [employer] in [facility] every 3 months, last appt 2 months ago -consult Nephrology, we appreciate their input. s/p Bicarb and calcium gluconate. -continue IV fluid hydration and monitor -avoid nephrotoxins -Creatinine with slight improvement this morning, continue to monitor History of COPD - chronic and stable -no acute exacerbation -continue with inhaler, DuoNeb as needed for any shortness of breath History of sleep apneacontinue with CPAP Hyperkalemia - s/p Kayexalate, resolved Constipation, acute -Continue bowel program, as needed laxatives as needed. History of essential tremor continue with home primidone DVT prophylaxis-SCD's Lovenox on hold due to anemia. Discharge Planning: PT recommends PT at rehab, CM assisting with placement. (1) Fracture of femoral shaft, left, closed Qualifiers: Encounter type: initial encounter Fracture morphology: oblique Fracture alignment: displaced Qualified Code(s): S72.332A - Displaced oblique fracture of shaft of left femur, initial encounter for closed fracture
--- NOTE | 2018-05-07 12:34 | P.PNOP ---
Subjective Interval history: Patient comfortable Physical Exam Vital signs: Vital Signs 05/06/18 15:57 05/06/18 16:00 05/06/18 16:13 Temperature 98.5 F 98.5 F 98.2 F Pulse Rate 82 82 80 Respiratory Rate 19 19 18 Blood Pressure 112/56 L 112/56 L 108/51 L Pulse Oximetry 92 L 92 L 05/06/18 16:38 05/06/18 20:00 05/07/18 00:00 Temperature 98.2 F 99.5 F 98.5 F Pulse Rate 81 75 77 Respiratory Rate 18 18 18 Blood Pressure 107/50 L 135/59 L 125/60 Pulse Oximetry 94 L 92 L 94 L 05/07/18 08:00 05/07/18 09:08 05/07/18 12:00 Temperature 97.7 F 97.9 F Pulse Rate 57 L 76 Respiratory Rate 19 19 Blood Pressure 135/60 151/67 H Pulse Oximetry 95 98 96 Intake & Output 05/06/18 05/07/18 05/07/18 18:59 06:59 18:59 Intake Total 55 / 55 1100 / 1100 Output Total 650 / 650 Balance -595 / -595 1100 / 1100 Weight 102 kg Intake: IV 1100 / 1100 NS Inj 1,000 ML @ 75 mls/hr IV. 1000 / 1000 CONT .[id number] [facility] Rx#:[id number] NS Inj 250 ML @ 15 mls/hr IV. 100 / 100 SIG ONCE [facility] Rx#:[id number] Other 55 / 55 Rbc As-3 Leukoreduced Unit 30 / 30 [id number] Rbc As-3 Leukoreduced Unit 25 / 25 [id number] Intake (Blood Product) Amt 0 / 0 Rbc As-3 Leukoreduced Unit 0 / 0 [id number] Rbc As-3 Leukoreduced Unit 0 / 0 [id number] Output: Urine 650 / 650 Other: # Voids 1 Date of Last Bowel Movement 05/04/18 05/06/18 05/06/18 # Bowel Movements 1 Narrative: Left lower extremity. Serosanguineous drainage within the dressing. Acceptable. Hip and knee range of motion. [place]. Negative Distal motor, sensory and neurologic examinations intact Results - Labs CBC & Chem 7: 05/07/18 04:23 05/07/18 04:26 Laboratory Results - last 24 hr 05/06/18 05/06/18 05/06/18 04:50 06:11 13:53 Hgb Hct Sodium Potassium Chloride Carbon Dioxide Anion Gap BUN Creatinine Estimated GFR Random Glucose Calcium Calcium Adj for Albumin Iron 15 L TIBC 165 L % Saturation 9.1 L Ferritin 210 Albumin Vitamin B12 491 Folate 9.1 MTS Gel Crossmatch See Detail See Detail Bld Prod Order Comment 05/06/18 05/07/18 05/07/18 22:40 04:23 04:26 Hgb 8.5 L 8.3 L Hct 24.8 L 24.1 L Sodium 143 Potassium 3.9 Chloride 113 H Carbon Dioxide 23.4 Anion Gap 7 BUN 38 H Creatinine 2.25 H Estimated GFR 28 L Random Glucose 107 H Calcium 7.2 L* Calcium Adj for Albumin 8.6 Iron TIBC % Saturation Ferritin Albumin 2.2 L Vitamin B12 Folate MTS Gel Crossmatch Bld Prod Order Comment Microbiology 05/06/18 19:40 Stool Stool Occult Blood (ELIZABETH) - Final Hemoccult negative Assessment and Plan - Problem List (1) Fracture of femoral shaft, left, closed Code(s): S72.302A - Unspecified fracture of shaft of left femur, initial encounter for closed fracture Status: Acute Qualifiers: Encounter type: initial encounter Fracture morphology: oblique Fracture alignment: displaced Qualified Code(s): S72.332A - Displaced oblique fracture of shaft of left femur, initial encounter for closed fracture - Assessment and Plan POD #3 Left femur open reduction and internal fixation of supracondylar and shaft fracture above total knee replacement and below total hip replacement Hgb improved Pain management Medical management DVT Prophylaxis Physical therapy - TTWB D/C planning - anticipating SNF Recommend discharge today. Follow-up in office in 10 days with nurse practitioner Monitor
--- NOTE | 2018-05-07 14:03 | P.DS ---
Date of admission: 05/03/18 12:28 Primary care physician: UNKNOWN Attending physician on discharge: Leanna Hussein Anticipated date of discharge: 05/07/18 Brief History from admission: 82-year-old white male with a history of COPD, sleep apnea presents to the emergency room with left upper leg pain since he tripped on tile yesterday in the kitchen despite taking tclp-[id number] ibuprofen. Due to the persistent pain and difficulty ambulating he came to the emergency room for evaluation. He denies loss of consciousness after the fall. Of note patient has a history of bilateral hip replacement with left hip arthroplasty revision about a year ago with Dr. Nick Briggs. He also has a right knee replacement. He is currently ambulating independently without assistance of a walker at home. He is not aware if he has a history of chronic kidney disease but reports that he had left nephrectomy done in the past due to renal cancer. He is currently not complain any chest pain or shortness of breath. DS: Diagnosis - Discharge Diagnosis (1) Fracture of femoral shaft, left, closed Status: Acute DS: Medications - Discharge Medications Prescriptions: budesonide-formoterol [Symbicort] 2 puff INH BID #1 inhaler ferrous sulfate [FeroSul] 325 mg PO DAILY #30 tab hydrocodone-acetaminophen 1 tab PO Q6H PRN #12 tab PRN Reason: Pain Scale 2 To 10 DS: Summary Hospital Course: 82-year-old male with past medical history significant for renal cancer s/p nephrectomy, COPD, sleep apnea who presented to the emergency department on 05/03 after mechanical fall. He complained of left upper leg pain for which he took qbko-bmn-xkxpbmg ibuprofen with little relief he eventually came to the emergency department for further evaluation due to difficulty ambulating. Imaging revealed left hip intratrochanteric fracture with distal femur fracture above prosthesis. Orthopedic services was consulted for further evaluation. On presentation patient also had an elevated creatinine of 2.53 and GFR of 38. Patient underwent left femur ORIF of supracondylar and shaft fracture above total knee replacement and below total hip replacement by Dr. Alfaro on 05/04. Of note patient had an estimated blood loss of 1,000ml's. Postoperatively hemoglobin dropped to 5.8/17.6, patient was transfused with 2 units of PRBCs with improvement in H&H to 8.2. Once again on 05/06 H&H dropped to 6.6/19.2 for which he received an additional 2 units of PRBCs. Iron studies consistent with iron deficiency anemia for which she was started on oral iron supplementation. H&H last night and this morning so far stable. Continues to have some left incision serosanguineous drainage which has improved this morning. Patient has been cleared for discharge to rehab today by orthopedic services. His Lovenox and low-dose aspirin have been held since yesterday, recommend resuming tomorrow if H&H is stable. During patient's hospitalization his creatinine also increased to 3.7, for which she was evaluated by nephrology services. He was treated with IV fluids, anemia corrected and hypocalcemia corrected with IV calcium along with albumin. Renal ultrasound showed normal right kidney and surgically absent left kidney. Nephrology suspected acute kidney injury due to blood loss and worsening renal function due to acute tubular necrosis. Patient's renal function continues to improve and this morning creatinine 2.25, BUN 38. Recommend ongoing renal monitoring while in rehab. Patient is seen and examined resting in bed comfortably in no acute distress. Denies any fevers, chills, nausea, vomiting, diarrhea, cough, shortness of breath or chest pain. Patient states that he would like to go to [facility]. Spoke with nurse who reports copious amounts of bleeding from left hip dressing change early this morning, pressure dressing changed and reapplied later in the afternoon with improvement in amount of drainage. Cleared to discharge by Ortho services. - Time Spent with Patient Total time spent providing and/or coordinating discharge services: Greater than 30 minutes - Quality: VTE Deep Vein Thrombosis/Pulmonary Embolism Present on Admission: No Exam Vital signs: Vital Signs 05/06/18 15:57 05/06/18 16:00 05/06/18 16:13 Temperature 98.5 F 98.5 F 98.2 F Pulse Rate 82 82 80 Respiratory Rate 19 19 18 Blood Pressure 112/56 L 112/56 L 108/51 L Pulse Oximetry 92 L 92 L 05/06/18 16:38 05/06/18 20:00 05/07/18 00:00 Temperature 98.2 F 99.5 F 98.5 F Pulse Rate 81 75 77 Respiratory Rate 18 18 18 Blood Pressure 107/50 L 135/59 L 125/60 Pulse Oximetry 94 L 92 L 94 L 05/07/18 08:00 05/07/18 09:08 05/07/18 12:00 Temperature 97.7 F 97.9 F Pulse Rate 57 L 76 Respiratory Rate 19 19 Blood Pressure 135/60 151/67 H Pulse Oximetry 95 98 96 Intake & Output 05/06/18 05/07/18 05/07/18 18:59 06:59 18:59 Intake Total 55 / 55 1100 / 1100 1000 / 1000 Output Total 650 / 650 Balance -595 / -595 1100 / 1100 1000 / 1000 Weight 102 kg Intake: IV 1100 / 1100 1000 / 1000 NS Inj 1,000 ML @ 75 mls/hr IV. 1000 / 1000 1000 / 1000 CONT .[id number] [facility] Rx#:[id number] NS Inj 250 ML @ 15 mls/hr IV. 100 / 100 SIG ONCE [facility] Rx#:[id number] Other 55 / 55 Rbc As-3 Leukoreduced Unit 30 / 30 [id number] Rbc As-3 Leukoreduced Unit 25 / 25 [id number] Intake (Blood Product) Amt 0 / 0 Rbc As-3 Leukoreduced Unit 0 / 0 [id number] Rbc As-3 Leukoreduced Unit 0 / 0 [id number] Output: Urine 650 / 650 Other: # Voids 1 Date of Last Bowel Movement 05/04/18 05/06/18 05/06/18 # Bowel Movements 1 Narrative: GENERAL: Well-nourished, well-developed patient. SKIN: Warm and dry. Left hip dressing dry and intact, trace edema noted. Left upper chest and lateral ecchymosis. Left upper chest subclavian central line. HEAD: Normocephalic. EYES: No scleral icterus. No injection or drainage. NECK: Supple, trachea midline. CARDIOVASCULAR: Regular rate and rhythm without murmurs, gallops, or rubs. RESPIRATORY: Breath sounds equal bilaterally. No accessory muscle use. GASTROINTESTINAL: Abdomen soft/obese, non-tender, nondistended. EXTREMITIES: Left knee immobilizer in place, normal movement, capillary refill less than 3 seconds, normal sensation. Minimal left groin ecchymosis noted. NEUROLOGICAL: Awake, alert, and oriented x 3. Non-focal. Results Procedures completed during hospitalization: - Preoperative Diagnosis (1) Fracture of femoral shaft, left, closed - Postoperative Diagnosis (1) Fracture of femoral shaft, left, closed Date of procedure: 05/04/18 Procedure: Left femur open reduction and internal fixation of supracondylar and shaft fracture above total knee replacement and below total hip replacement Implants: Synthes Anesthesia: GETA Surgeon: Feroz Alfaro MD Director Of Accounting: Wilson Connors Estimated blood loss (mL): 1,000 Labs on day of discharge: Labs from last 24 hours 05/07/18 05/07/18 05/06/18 04:26 04:23 22:40 Hgb 8.3 L 8.5 L Hct 24.1 L 24.8 L Sodium 143 Potassium 3.9 Chloride 113 H Carbon Dioxide 23.4 Anion Gap 7 BUN 38 H Creatinine 2.25 H Estimated GFR 28 L Random Glucose 107 H Calcium 7.2 L* Calcium Adj for Albumin 8.6 Iron TIBC % Saturation Ferritin Albumin 2.2 L Vitamin B12 Folate MTS Gel Crossmatch Bld Prod Order Comment 05/06/18 05/06/18 05/06/18 13:53 06:11 04:50 Hgb Hct Sodium Potassium Chloride Carbon Dioxide Anion Gap BUN Creatinine Estimated GFR Random Glucose Calcium Calcium Adj for Albumin Iron 15 L TIBC 165 L % Saturation 9.1 L Ferritin 210 Albumin Vitamin B12 491 Folate 9.1 MTS Gel Crossmatch See Detail See Detail Bld Prod Order Comment - Impressions ITS Impressions Knee X-Ray 05/03/18 10:30 CONCLUSION: Fracture distal femur incompletely evaluated. Complete series of the femur suggested. Chest X-Ray 05/04/18 00:00 CONCLUSION: 1. Left subclavian central line distal tip likely in the superior aspect of the SVC. No pneumothorax is visualized. 2. Underinflated examination with mild bibasilar opacity most likely representing subsegmental atelectasis. Femur X-Ray 05/04/18 00:00 CONCLUSION: Improved alignment following left femur ORIF. Abdomen/Bladder Ultrasound 05/05/18 18:07 CONCLUSION: Normal right kidney and surgically absent left kidney. Discharge Plan - Discharge Disposition Patient Disposition: [facility] Inpatient - Discharge Condition Condition: Fair - Discharge Order Discharge Orders: Discharge Order (Routine); Ordered 05/07/18 Ordered By: George Mccarty - Physicians Team Primary Care Provider: UNKNOWN, Attending Provider: Leanna Hussein Other Providers: Nick Briggs MD ; Feroz Alfaro MD ; [facility] ; Nishi Miranda MD
--- NOTE | 2018-05-07 19:50 | P.PNNP ---
Subjective Interval history: Patient is doing better Physical Exam Vital signs: Vital Signs 05/06/18 20:00 05/07/18 00:00 05/07/18 08:00 Temperature 99.5 F 98.5 F 97.7 F Pulse Rate 75 77 57 L Respiratory Rate 18 18 19 Blood Pressure 135/59 L 125/60 135/60 Pulse Oximetry 92 L 94 L 95 05/07/18 09:08 05/07/18 12:00 05/07/18 16:00 Temperature 97.9 F 97.9 F Pulse Rate 76 79 Respiratory Rate 19 19 Blood Pressure 151/67 H 127/61 Pulse Oximetry 98 96 93 L Intake & Output 05/07/18 05/07/18 05/08/18 06:59 18:59 06:59 Intake Total 1100 / 1100 1000 / 1000 Balance 1100 / 1100 1000 / 1000 Weight 102 kg Intake: IV 1100 / 1100 1000 / 1000 NS Inj 1,000 ML @ 75 mls/hr IV. 1000 / 1000 1000 / 1000 CONT .[id number] [facility] Rx#:[id number] NS Inj 250 ML @ 15 mls/hr IV. 100 / 100 SIG ONCE [facility] Rx#:[id number] Other: # Voids 1 Date of Last Bowel Movement 05/06/18 05/06/18 # Bowel Movements 1 Narrative: GENERAL: Well-nourished, well-developed patient. SKIN: Warm and dry. Left hip dressing dry and intact, trace edema noted. Left upper chest and lateral ecchymosis. Left upper chest subclavian central line. HEAD: Normocephalic. EYES: No scleral icterus. No injection or drainage. NECK: Supple, trachea midline. CARDIOVASCULAR: Regular rate and rhythm without murmurs, gallops, or rubs. RESPIRATORY: Breath sounds equal bilaterally. No accessory muscle use. GASTROINTESTINAL: Abdomen soft/obese, non-tender, nondistended. EXTREMITIES: Left knee immobilizer in place, normal movement, capillary refill less than 3 seconds, normal sensation. Minimal left groin ecchymosis noted. NEUROLOGICAL: Awake, alert, and oriented x 3. Non-focal. Assessment and Plan - Assessment (1) Acute renal failure Code(s): N17.9 - Acute kidney failure, unspecified Status: Acute (2) Anemia Code(s): D64.9 - Anemia, unspecified Status: Acute (3) Fracture of femoral shaft, left, closed Code(s): S72.302A - Unspecified fracture of shaft of left femur, initial encounter for closed fracture Status: Acute Qualifiers: Encounter type: initial encounter Fracture morphology: oblique Fracture alignment: displaced Qualified Code(s): S72.332A - Displaced oblique fracture of shaft of left femur, initial encounter for closed fracture (4) Hyperkalemia Code(s): E87.5 - Hyperkalemia Status: Acute (5) Metabolic acidosis Code(s): E87.2 - Acidosis Status: Acute - Plan Patient has acute kidney injury due to blood loss and the worsening renal failure is due to acute tubular necrosis Hb stable continue to respond to hydration hemoglobin 8.3 creatinine 2.2, okay to discharge from nephrology point of view US Rt kidney -ve hx of Lt nephrectomy follow BMP
[2018-05-07 20:08] VITALS: RESP 18
[2018-05-08 00:20] VITALS: PULSE 75
[2018-05-08] MEDS: Sod Chloride 0.9% Inj 1,000 ML IV.CONT SCH (01:24)
[2018-05-08 07:04] LABS: Hematocrit 24.8 % (39.0-51.0); Hemoglobin 8.7 gm/dL (13.0-17.0)
[2018-05-08 07:33] LABS: Calcium 7.4 mg/dL (8.5-10.1); Carbon Dioxide 22.9 meq/L (21.0-32.0); Potassium 4.2 meq/L (3.5-5.1)
[2018-05-08 07:48] LABS: Albumin 2.2 g/dL (3.4-5.0); Calcium-Albumin Corrected 8.8 mg/dL (8.5-10.1)
[2018-05-08 08:51] VITALS: O2SAT 96
[2018-05-08] MEDS: Senna/Docusate Sodium 8.6/50 MG Tablet PO SCH (08:57)
[2018-05-08] MEDS: Duloxetine 60 MG DR Capsule PO SCH (08:58)
[2018-05-08] MEDS: Primidone 50 MG Tablet PO SCH (08:58)
[2018-05-08] MEDS: Ferrous Sulfate 325 MG Tablet PO SCH (08:58)
[2018-05-08] MEDS: Finasteride 5 MG Tablet PO SCH (08:58)
[2018-05-08] MEDS: Budesonide-Formoterol 160/4.5 MCG 6 GM Inhaler INH SCH (08:58)
[2018-05-08 09:26] VITALS: BP 128/61; TEMP 97.8
--- NOTE | 2018-05-08 11:26 | P.PNADD ---
Addendum to Inpatient Note Reason for Addendum: Additional Documentation Additional information: Patient seen resting in bed comfortably in no acute distress. Left hip dressing changed early this morning with noted decrease amount of bleeding per patient. He denies any dizziness, lightheadedness, cough, shortness of breath or chest pain. Ready to go to rehab today. Renal function continues to improve , calcium with albumin adjustment improving, H&H stable, hemodynamically stable.
== END 2018-05-08 10:18 ==
LOC: NEPD 10:27 → NEDA 12:28 → N06 15:18
PROVIDERS: ADMIT Internal Medicine; ATTEND Internal Medicine